=== PATIENT | male | born 1940 | race Caucasian/White ===

== ENCOUNTER 2020-03-12 15:39 | Emergency (ER) | payer MEDICARE, BC ==
--- NOTE | 2020-03-12 15:48 | ED ---
Back Pain HPI - General Stated Complaint: Back pain Time Seen by Provider: 03/12/20 15:45 - History of Present Illness Initial Comments: Patient is a 79-year-old male with past medical history of hypertension and hyperlipidemia who presents to the emergency department with lower back pain. He states he hurt it a week ago. 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 Denies history of previous back pain. States he has been ambulatory over the past week however his pain is getting progressively worse. States the last have intense spasms in the region. He has been taking Aleve without improvement. He denies any bowel or bladder incontinence or retention. Denies saddle anesthesia. Denies any fevers or chills. No history of cancer. Denies any weakness in his lower extremities. No calf pain or swelling. No history of DVT or PE. No numbness or tingling. There are no other alleviating, precipitating or modifying factors - Related Data Home Medications Medication Instructions Recorded Confirmed Cholecalciferol [Vitamin D3] 2,000 unit PO DAILY 12/29/15 03/12/20 Doxazosin [Cardura] 2 mg PO HS 12/29/15 03/12/20 Glucosamine/Chondro Berman A [Cosamin 2 tab PO DAILY 12/29/15 03/12/20 Ds Tablet] Latanoprost Ophth [Xalatan 0.005%] 1 drops LEFT EYE DAILY 12/29/15 03/12/20 Levothyroxine Sodium [Synthroid] 50 mcg PO DAILY 12/29/15 03/12/20 Quinapril HCl [Accupril] 20 mg PO DAILY 12/29/15 03/12/20 Simvastatin [Zocor] 40 mg PO HS 12/29/15 03/12/20 Vit C/E/Zn/Coppr/Lutein/Zeaxan 1 cap PO BID 12/29/15 03/12/20 [Preservision Areds 2 Softgel] Dorzolamide HCl/Pf [Dorzolamide 2% 1 drop LEFT EYE BID 03/12/20 03/12/20 Eye Drop] Glucosamine/Chondro Berman A [Cosamin 1 tab PO HS 03/12/20 03/12/20 Ds Tablet] Previous Rx's Medication Instructions Recorded Cyclobenzaprine [Flexeril] 10 mg PO TID PRN #15 tab 03/12/20 Allergies Allergy/AdvReac Type Severity Reaction Status Date / Time tree and shrub pollen Allergy Unknown Verified 03/12/20 17:12 Review of Systems ROS Statement: Those systems with pertinent positive or pertinent negative responses have been documented in the HPI. ROS Other: All systems not noted in ROS Statement are negative. Past Medical History Past Medical History: Hyperlipidemia, Hypertension, Sleep Apnea/CPAP/BIPAP, Thyroid Disorder History of Any Multi-Drug Resistant Organisms: None Reported Additional Past Surgical History / Comment(s): left eye retinal repair, loc cataracts, Past Anesthesia/Blood Transfusion Reactions: No Reported Reaction Smoking Status: Former smoker - Past Family History Sister(s) Family Medical History: Cancer General Exam General appearance: alert, in no apparent distress Head exam: Present: atraumatic, normocephalic, normal inspection Eye exam: Present: normal appearance, PERRL, EOMI. Absent: scleral icterus, conjunctival injection, periorbital swelling ENT exam: Present: normal exam, mucous membranes moist Neck exam: Present: normal inspection. Absent: tenderness, meningismus, lymphadenopathy Respiratory exam: Present: normal lung sounds bilaterally. Absent: respiratory distress, wheezes, rales, rhonchi, stridor Cardiovascular Exam: Present: regular rate, normal rhythm, normal heart sounds. Absent: systolic murmur, diastolic murmur, rubs, gallop, clicks GI/Abdominal exam: Present: soft, normal bowel sounds. Absent: distended, tenderness, guarding, rebound, rigid Extremities exam: Present: normal inspection, full ROM, normal capillary refill, other (5/5 muscle strength in the bilateral lower extremities). Absent: tenderness, pedal edema, joint swelling, calf tenderness Back exam: Present: muscle spasm, paraspinal tenderness. Absent: vertebral tenderness Neurological exam: Present: alert, oriented X3, CN II-XII intact Psychiatric exam: Present: normal affect, normal mood Skin exam: Present: warm, dry, intact, normal color. Absent: rash Course Vital Signs 03/12/20 03/12/20 03/12/20 15:44 15:46 16:00 Temperature 98.0 F Pulse Rate 63 61 Respiratory 18 12 Rate Blood Pressure 129/69 129/69 129/69 O2 Sat by Pulse 98 Oximetry 07/03/20 07/03/20 17:00 18:00 Temperature 97.8 F Pulse Rate 61 68 Respiratory 18 16 Rate Blood Pressure 128/72 129/80 O2 Sat by Pulse Oximetry Medical Decision Making - Medical Decision Making Upon arrival the patient is placed in room 24. A thorough history and physical exam was performed. IV was established by EMS. He was given 50 g of fentanyl by EMS. Patient was given 5 mg of Valium by myself as well as a shot of Toradol. Patient was sent over for a CT of his lumbar spine which demonstrates spondylitic changes. Subluxation deformity at L4-L5 and L5-S1. Severe spinal stenosis in the lower lumbar spine. Discuss results with the patient. He states he "feels ready to go home" reevaluation demonstrates no neuro deficits. Patient is ambulated her without difficulty. No saddle anesthesia or bowel or bladder retention or incontinence. Patient will be discharged home with the Flexeril started pack. Patient is to take Motrin at home. I will prescribe him an additional Flexeril to the pharmacy. I gave him felt information for Dr. Palafox. Follow up with his primary care doctor within 2-4 days. Return to the emergency room for new or worsening symptoms. Return parameters were discussed. Patient was then discharged home ambulatory in stable condition Disposition Clinical Impression: Back spasm Disposition: HOME SELF-CARE Condition: Stable Instructions (If sedation given, give patient instructions): Acute Low Back Pain (ED) Additional Instructions: Please follow up with your primary care doctor. Take the ibuprofen and muscle relaxer. Place warm compresses to the site. Return to the emergency room for any new or worsening symptoms Prescriptions: Cyclobenzaprine [Flexeril] 10 mg PO TID PRN #15 tab PRN Reason: Muscle Spasm Is patient prescribed a controlled substance at d/c from ED?: No Referrals: Ezra Maciel MD [Primary Care Provider] - 1-2 days Zack Rene DO [Doctor of Osteopathic Medicine] - 1-2 days Time of Disposition: 17:22
[2020-03-12] MEDS ORDERED: KETOROLAC 30 MG/ML 1 ML VIAL IVP STA (16:04)
[2020-03-12] MEDS ORDERED: DIAZEPAM 5 MG/ML 2 ML INJ IVP STA (16:04)
--- NOTE | 2020-03-12 17:06 | CT ---
EXAMINATION TYPE: CT lumbar spine wo con DATE OF EXAM: 03/12/2020 COMPARISON: None HISTORY: Left sided low back pain after injury. CT DLP: 1577.4 mGycm Automated exposure control for dose reduction was used. Images were obtained from the level of T12-S3 vertebra without contrast. There is a a few millimeter retrolisthesis of L4-5. There is a very mild anterior subluxation of L5 in relation S1. There is tra nsitional S1 vertebra. There is hypertrophic facet arthropathy in the lower lumbar spine. There is no compression fracture. There is vacuum disc phenomenon. There is mild narrowing of the lumbar disc sp aces. There is no lumbar paraspinal mass. There is very severe spinal stenosis at L5-S1 due to facet arthropathy and subluxation deformity. There is mild spinal stenosis at L4-5. The sacroiliac joints a re intact. I see no focal bone destruction. IMPRESSION: Spondylotic changes. Subluxation deformity at L4-5 and L5-S1. Severe spinal stenosis in the lower lum bar spine.
[2020-03-12] MEDS ORDERED: CYCLOBENZAPRINE 10MG STARTER 3 TAB BTL PO STA (17:21)
[2020-03-12 18:05] VITALS: BP 129/80; PULSE 68; RESP 16; TEMP 97.8
== END 2020-03-12 18:05 | disposition home or self-care (01) ==
LOC: EC 15:39
DX: M62.830 Muscle spasm of back (principal); M48.061 Spinal stenosis, lumbar region without neurogenic claudication; M43.5X7 Other recurrent vertebral dislocation, lumbosacral region; M47.816 Spondylosis without myelopathy or radiculopathy, lumbar region; I10 Essential (primary) hypertension; E78.5 Hyperlipidemia, unspecified; G47.30 Sleep apnea, unspecified; Z79.890 Hormone replacement therapy; Z79.899 Other long term (current) drug therapy; Z87.891 Personal history of nicotine dependence; Z91.048 Other nonmedicinal substance allergy status; Z99.89 Dependence on other enabling machines and devices
CPT/HCPCS: 72131; 99284; 96374; 96375; J3360; J1885

== ENCOUNTER 2021-03-10 11:12 | Emergency (ER) | payer MEDICARE, BC ==
[2021-03-10 11:16] VITALS: TEMP 98.4
[2021-03-10] MEDS ORDERED: methylPREDNISolone SOD SUCCI 125 MG/2 ML VIAL IM STA (11:56)
[2021-03-10] MEDS ORDERED: MORPHINE SULFATE 4 MG/ML SYRINGE IV STA (11:56)
[2021-03-10] MEDS ORDERED: MORPHINE SULFATE 4 MG/ML SYRINGE IM STA (12:09)
[2021-03-10 12:18] VITALS: RESP 18
--- NOTE | 2021-03-10 12:54 | XR ---
EXAMINATION TYPE: XR thoracic spine 3 views , XR lumbar spine 3 views DATE OF EXAM: 03/10/2021 COMPARISON: NONE HISTORY: 80-year-old male admitted and low back pain. FINDINGS: THORACIC SPINE: 12 rib-bearing thoracic vertebral bodies. All pedicles are visualized. [facility] within the lower thoracic spine. There is some prominent osseous overlap along the upper third thoracic spine. No evidence of malalignment or vertebral compression collapse. Lumbar spine: Severe hypertrophic facet arthropathy lower lumbar spine. There is a transitional lumbosacral segment denoted as a sacralized L5. Grade 1 anterolisthesis L4-L5. Grade 1 retrolisthesis L1-L2 and L3-L4. V ertebral body heights are preserved. IMPRESSION (thoracic and lumbar spine): 1. No evident vertebral compression collapse. 2. 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 3. Transitional lumbosacral segment denoted as a sacralized L5. 4. Advanced hypertrophic facet arthropathy lower lumbar spine. Grade 1 spondylolistheses at L1-L2, L3 -L4, and L4-L5.
--- NOTE | 2021-03-10 13:18 | ED ---
Back Pain HPI - General Chief Complaint: Back Pain/Injury Stated Complaint: back pain Time Seen by Provider: 03/10/21 11:23 Source: patient, RN notes reviewed Limitations: no limitations - History of Present Illness Initial Comments: Patient is a 80-year-old male that presents to the emergency department complaining of left-sided mid to low back pain. He notes that he follow up with orthopedics and they noted that it was not an orthopedic issue. 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 He notes that it is more stiff and tender on the left side than the right. He denied any radiation down the legs. He denied any issue going to the bathroom just getting up and walking to the bathroom. He notes that is mostly stiff and painful from a sitting to standing position. He was a well-appearing well-hydrated 80-year-old male in no apparent distress. He is on a computed evaluated for second opinion. He denied any chest pain shortness breath headache nausea vomiting diarrhea constipation fever fatigue chills weakness numbness tingling in his lower extremities any issues with bladder or bowel incontinence/retention. No concern for cauda equina. - Related Data Home Medications Medication Instructions Recorded Confirmed Cholecalciferol [Vitamin D3] 2,000 unit PO DAILY 12/29/15 03/10/21 Doxazosin [Cardura] 2 mg PO HS 12/29/15 03/10/21 Glucosamine/Chondro Berman A [Cosamin 2 tab PO DAILY 12/29/15 03/10/21 Ds Tablet] Latanoprost Ophth [Xalatan 0.005%] 1 drops LEFT EYE HS 12/29/15 03/10/21 Levothyroxine Sodium [Synthroid] 50 mcg PO DAILY 12/29/15 03/10/21 Quinapril HCl [Accupril] 20 mg PO DAILY 12/29/15 03/10/21 Simvastatin [Zocor] 40 mg PO HS 12/29/15 03/10/21 Vit C/E/Zn/Coppr/Lutein/Zeaxan 1 cap PO DAILY 12/29/15 03/10/21 [Preservision Areds 2 Softgel] Glucosamine/Chondro Berman A [Cosamin 1 tab PO HS 03/12/20 03/10/21 Ds Tablet] Pantoprazole Sodium [Protonix] 40 mg PO DAILY 03/10/21 03/10/21 Previous Rx's Medication Instructions Recorded Cyclobenzaprine HCl 5 mg PO TID #30 tab 03/10/21 Ibuprofen [Motrin] 800 mg PO Q6HR #30 tab 03/10/21 predniSONE 50 mg PO DAILY #5 tab 03/10/21 Allergies Allergy/AdvReac Type Severity Reaction Status Date / Time tree and shrub pollen Allergy Unknown Verified 03/10/21 13:01 Review of Systems ROS Statement: Those systems with pertinent positive or pertinent negative responses have been documented in the HPI. ROS Other: All systems not noted in ROS Statement are negative. Past Medical History Past Medical History: Hyperlipidemia, Hypertension, Sleep Apnea/CPAP/BIPAP, Thyroid Disorder History of Any Multi-Drug Resistant Organisms: None Reported Additional Past Surgical History / Comment(s): left eye retinal repair, loc cataracts, Past Anesthesia/Blood Transfusion Reactions: No Reported Reaction Past Psychological History: No Psychological Hx Reported Smoking Status: Never smoker Past Alcohol Use History: Daily Past Drug Use History: None Reported - Past Family History Sister(s) Family Medical History: Cancer General Exam Limitations: no limitations General appearance: alert, in no apparent distress Head exam: Present: atraumatic, normocephalic, normal inspection Eye exam: Present: normal appearance, PERRL, EOMI. Absent: scleral icterus, conjunctival injection, periorbital swelling Neck exam: Present: normal inspection Respiratory exam: Present: normal lung sounds bilaterally. Absent: respiratory distress, wheezes, rales, rhonchi, stridor Cardiovascular Exam: Present: regular rate, normal rhythm, normal heart sounds. Absent: systolic murmur, diastolic murmur, rubs, gallop, clicks Extremities exam: Present: normal inspection, full ROM, normal capillary refill. Absent: tenderness, pedal edema, joint swelling, calf tenderness Back exam: Present: normal inspection, full ROM, paraspinal tenderness (Left side from mid to low back) Neurological exam: Present: alert, oriented X3 Psychiatric exam: Present: normal affect, normal mood Skin exam: Present: warm, dry, intact, normal color. Absent: rash Course Vital Signs 03/10/21 03/10/21 11:14 12:17 Temperature 98.4 F Pulse Rate 72 62 Respiratory 20 18 Rate Blood Pressure 123/62 131/73 O2 Sat by Pulse 99 95 Oximetry Medical Decision Making - Medical Decision Making 80-year-old male complaining of low back pain after moving several landscaping material bags and breaks. X-ray of the thoracic lumbar and lumbar spine, 4 mg of morphine ordered. X-rays negative for any acute osseous process. Given clinical symptoms and mechanism of injury most likely a lumbar strain. Case discussed with Dr. Ambrocio, patient can discharge home. - Radiology Data Radiology results: report reviewed, image reviewed X-ray of the lumbar and thoracic spine: No evident vertebral compression claps. Disc in the mid and lower thoracic spine. Transitional lumbosacral segment denoted as a sacralized L5. Advanced hypertrophic facet arthropathy lower lumbar spine. Grade 1 spondylolisthesis at L1 to L2, L3-L4, L4-L5. Disposition Clinical Impression: Mechanical back pain, Strain of lumbar region Disposition: HOME SELF-CARE Condition: Stable Instructions (If sedation given, give patient instructions): Acute Low Back Pain (ED) Additional Instructions: Please return to the Emergency Department if symptoms worsen or any other concerns. Follow-up with primary care as needed. Take medications as prescribed. Avoid taking muscle relaxer with alcohol. Avoid driving while using the muscle relaxer. Prescriptions: Cyclobenzaprine HCl 5 mg PO TID #30 tab Ibuprofen [Motrin] 800 mg PO Q6HR #30 tab Is patient prescribed a controlled substance at d/c from ED?: No Referrals: Ezra Maciel MD [Primary Care Provider] - 1-2 days Time of Disposition: 13:18
[2021-03-10 13:45] VITALS: BP 124/71; PULSE 60
== END 2021-03-10 13:49 | disposition home or self-care (01) ==
LOC: EC 11:12
DX: S39.012A Strain of muscle, fascia and tendon of lower back, initial encounter (principal); I10 Essential (primary) hypertension; G47.30 Sleep apnea, unspecified; E78.5 Hyperlipidemia, unspecified; X50.0XXA Overexertion from strenuous movement or load, initial encounter
CPT/HCPCS: 72070; 72100; 99283; 96372 ×2; J2270; J2930

== ENCOUNTER → 2021-05-17 | Outpatient (CLI) | payer MEDICARE, BC ==
--- NOTE | 2021-05-17 12:02 | US ---
EXAMINATION TYPE: US venous doppler duplex LE LT DATE OF EXAM: 05/17/2021 11:35 AM COMPARISON: NONE CLINICAL HISTORY: I80.9 Phlebitis and thrombophlebitis Left leg. Left leg pain. No hx of DVT. Patient takes aspirin. SIDE PERFORMED: Left TECHNIQUE: The lower extremity deep venous system is examined utilizing real time linear array sonog dirk with graded compression, doppler sonography and color-flow sonography. VESSELS IMAGED: Common Femoral Vein Deep Femoral Vein Greater Saphenous Vein * Femoral Vein Popliteal Vein Small Saphenous Vein * Proximal Calf Veins (* superficial vessels) Left Leg: No evidence of DVT in veins imaged at this time. Satisfactory phasicity, compressibility, and color flow in the left lower extremity on images obtaine d. IMPRESSION: No ultrasound evidence for acute DVT in the left lower extremity.
== END | disposition home or self-care (01) ==
LOC: RADUSWWP 11:01
PROVIDERS: ATTEND Orthopaedic Surgery
DX: I80.9 Phlebitis and thrombophlebitis of unspecified site (principal); M79.605 Pain in left leg

== ENCOUNTER 2021-10-07 08:03 | Day surgery (SDC) | payer MEDICARE, BC ==
[2021-10-04 15:02] VITALS: BMI 33.5
[~2021-10-07 08:03] MED LIST: LACTATED RINGERS 1,000 ML IV SCH; LIDOCAINE 1% (10MG/ML) FOR IV START INTRADERMA PRN
[2021-10-07 08:32] VITALS: TEMP 98.4
[2021-10-07] MEDS ORDERED: LIDOCAINE 1% (10MG/ML) FOR IV START INTRADERMA ONE (08:42)
[2021-10-07] MEDS ORDERED: LIDOCAINE 1% INJ 10MG/ML (20 ML MDV) ONE (08:50)
[2021-10-07] MEDS ORDERED: PROPOFOL 10 MG/ML 20 ML VIAL IV ONE (08:50)
--- NOTE | 2021-10-07 09:03 | P.PCN ---
Date of Procedure: 10/07/21 Procedure(s) Performed: BRIEF HISTORY: Patient is a 81-year-old, pleasant, white female scheduled for an upper endoscopy as a part of evaluation of intermittent dysphagia to solids for the last 6 months duration. He does have history of GERD and has been on Protonix 40 mg daily and doing well.. PROCEDURE PERFORMED: Esophagogastroduodenoscopy with biopsy. PREOPERATIVE DIAGNOSIS: Intermittent dysphagia to solids of 6 months duration. IV sedation per anesthesia. PROCEDURE: After informed consent was obtained, the patient was brought into the endoscopy unit. IV sedation was administered by Anesthesia under continuous monitoring. Initially the Olympus GIF-140 video endoscope was inserted into the mouth. Esophagus intubated without any difficulty. The upper esophageal sphincter there was a small diverticulum identified but this could not be adequately visualized and. It was gradually advanced into the stomach and duodenum and carefully examined. The bulb and the second part of the duodenum appeared normal. The scope at this time was withdrawn to the stomach, adequately insufflated with air, and upon careful examination, mucosa of the antrum, body, cardia and the fundus appeared normal. The scope was then withdrawn into the esophagus. The GE junction was located at 39 cm from the incisors. Small hiatal hernia noted. The esophagus appeared slightly erythematous in the mid and distal esophagus with some exudates and biopsies were done to evaluate for reflux esophagitis. There was no evidence of esophageal stricture. The proximal cervical esophagus appeared normal except for small Zenker's diverticulum and the patient tolerated the procedure well. IMPRESSION: 1. Small hiatal hernia. 2. Mild mucosal erythema noted in the mid and distal esophagus with some exudates consistent with reflux esophagitis. 3. Possible small Zenker's diverticulum in the proximal cervical esophagus at the upper esophageal sphincter. RECOMMENDATIONS: The findings of this examination were discussed with the patient as well as his family. He was advised to continue with soft foods, continue Protonix 40 mg daily and follow with the biopsy results. If his symptoms progressively get worse he can have a barium swallow done to evaluate for size of Zenker's diverticulum. In the meantime continue with diet modification.
[2021-10-07 09:25] VITALS: BP 150/88; PULSE 59; RESP 18
== END 2021-10-07 09:47 | disposition home or self-care (01) ==
LOC: ORWHC2ENDO 08:03
PROVIDERS: ATTEND Internal Medicine Gastroenterology
DX: K44.9 Diaphragmatic hernia without obstruction or gangrene (principal); K21.00 Gastro-esophageal reflux disease with esophagitis, without bleeding
CPT/HCPCS: 43239; J2001; J2704; 88305; 88312; 88313

== ENCOUNTER → 2022-02-03 | Day surgery (SDC) | payer MEDICARE, BC ==
[2022-02-02 14:43] VITALS: BMI 33.5
[~2022-02-03] MED LIST changes: +LACTATED RINGERS 1,000 ML IV ONE; +LIDOCAINE 1% (10MG/ML) FOR IV START INTRADERMA ONE; -LIDOCAINE 1% (10MG/ML) FOR IV START INTRADERMA PRN; +PROPOFOL 10 MG/ML 20 ML VIAL IV ONE
[2022-02-03 10:52] VITALS: RESP 16; TEMP 97.7
--- NOTE | 2022-02-03 12:31 | P.PCN ---
Date of Procedure: 02/03/22 Procedure(s) Performed: BRIEF HISTORY: Patient is a 81-year-old pleasant white male scheduled for an elective colonoscopy as a part of evaluation of prior history of colon polyps. Last coloscopy was 6 years ago. PROCEDURE PERFORMED: Colonoscopy with biopsy and snare polypectomy. PREOPERATIVE DIAGNOSIS: History of colon polyps. IV sedation per Anesthesia. PROCEDURE: After informed consent was obtained, the patient, was brought into the endoscopy unit. IV sedation was administered by Anesthesia under continuous monitoring. Digital rectal examination was normal. Initially the Olympus CF-160 flexible video colonoscope was then inserted in the rectum, gradually advanced into the cecum without any difficulty. Careful examination was performed as the scope was gradually being withdrawn. Ileocecal valve and the appendiceal orifice were visualized and appeared normal. Prep was excellent. Mucosa of the cecum had a 3 mm polyp that was removed by cold biopsy. In the transverse colon there was a 3 mm polyp removed by cold biopsy. In the descending colon there was a 5 mm sessile polyp removed by cold biopsy. In the sigmoid colon there was a 7 mm polyp removed by snare polypectomy. Rest of the, ascending colon, transverse colon, descending colon, sigmoid colon, and rectum appeared normal. Retroflexion was performed in the rectum and no lesions were seen. Scattered diffuse diverticulosis seen. The patient tolerated the procedure well. IMPRESSION: 3 mm cecal polyp status post cold biopsy 3 mm transverse colon polyp status post cold biopsy 5 mm descending colon polyp status post cold biopsy 7 mm sigmoid colon polyp status post polypectomy Scattered diffuse diverticulosis . RECOMMENDATIONS: Findings of this examination were discussed with the patient as well as his family.. He was advised to follow with the biopsy results. If the biopsy reveals adenoma he can have a repeat colonoscopy in 3 years.
[2022-02-03 12:35] VITALS: BP 114/67
[2022-02-03 13:19] VITALS: PULSE 66
== END ==
LOC: ORWHC2ENDO 10:24
PROVIDERS: ATTEND Internal Medicine Gastroenterology
DX: D12.0 Benign neoplasm of cecum (principal); D12.3 Benign neoplasm of transverse colon; D12.4 Benign neoplasm of descending colon; D12.5 Benign neoplasm of sigmoid colon; Z86.010 Personal history of colon polyps
CPT/HCPCS: 45380; 45385; 88305; J2704

== ENCOUNTER → 2024-02-13 | Outpatient (CLI) | payer MEDICARE ==
--- NOTE | 2024-02-13 14:08 | US ---
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 Indirect Doppler criteria was utilized. FINDINGS: EXAM MEASUREMENTS: RIGHT: Peak Systolic Velocity (PSV) cm/sec ----- Right CCA: 63.3 ----- Right ICA: 81.9 ----- Right ECA: 116.2 ICA/CCA ratio: 1.3 RIGHT: End Diastole cm/sec ----- Right CCA: 15.7 ----- Right ICA: 23.7 ----- Right ECA: 10.4 LEFT: Peak Systolic Velocity (PSV) cm/sec ----- Left CCA: 68.6 ----- Left ICA: 88.5 ----- Left ECA: 96.4 ICA/CCA ratio: 1.3 LEFT: End Diastole cm/sec ----- Left CCA: 17.1 ----- Left ICA: 23.7 ----- Left ECA: 14.4 VERTEBRALS (direction of flow): Right Vertebral: Antegrade Left Vertebral: Antegrade Rhythm: Normal INSPECTOR PUBLICATIONS NOTES: Mild plaque formation noted throughout IMPRESSION: Less than 50% stenosis of the bilateral carotid bifurcations. Criteria for Assigning % of Stenosis / Diameter reduction (Estimation based on the indirect measurements of the internal carotid artery velocities (ICA PSV). 1. Normal (no stenosis)=ICA PSV < 125 cm/s: ratio < 2.0: ICA EDV<40 cm/s. 2. Less than 50% stenosis=ICA PSV < 125 cm/s: ratio < 2.0: ICA EDV<40 cm/s. 3. 50 to 69% stenosis=ICA PSV of 125 to 230 cm/s: ration 2.0 ? 4.0: ICA EDV 40-100 cm/s. 4. Greater than 70% stenosis to near occlusion= ICA PSV > 230 cm/s: ratio > 4.0: ICA EDV > 100 cm/s. 5. Near occlusion= ICA PSV velocities may be low or undetectable: variable ratio and ICA EDV. 6. Total occlusion=unable to detect flow.
--- NOTE | 2024-02-13 17:27 | CA ---
Transthoracic Echo Report Name: Ezra Gusman Age: 83 Gender: M : 1940 Exam Date: 02/13/2024 13:17 Exam Location: [facility] [facility] Ht (in): 71 Wt (lb): 220 Ordering Physician: Jaspal Cota MD Attending/Referring Phys: Jaspal Cota MD [employer] Pao Reid RDCS Procedure CPT: Indications: I34.0 NONRHEUMATIC MITRAL (VALVE) INSUFFICI Cardiac Hx: Technical Quality: Good Contrast 1: Total Dose (mL): Contrast 2: Total Dose (mL): MEASUREMENTS (Male / Female) Normal Values 2D ECHO LV Diastolic Diameter PLAX 5.0 cm 4.2 - 5.9 / 3.9 - 5.3 cm LV Systolic Diameter PLAX 3.2 cm IVS Diastolic Thickness 1.3 cm 0.6 - 1.0 / 0.6 - 0.9 cm LVPW Diastolic Thickness 1.2 cm 0.6 - 1.0 / 0.6 - 0.9 cm LV Relative Wall Thickness 0.5 RV Internal Dim ED PLAX 3.2 cm LA Systolic Diameter LX 4.0 cm 3.0 - 4.0 / 2.7 - 3.8 cm LV Diastolic Volume MOD 4C 112.0 cm??? LV Systolic Volume MOD 4C 54.2 cm??? LV Ejection Fraction MOD 4C 51.6 % LV Cardiac Index MOD 4C 1532.6 cm???/min???m??? LV Diastolic Length 4C 8.5 cm LV Systolic Length 4C 7.0 cm LV Diastolic Volume MOD 2C 103.3 cm??? LV Systolic Volume MOD 2C 47.8 cm??? LV Ejection Fraction MOD 2C 53.7 % LV Cardiac Index MOD 2C 1472.2 cm???/min???m??? LV Diastolic Length 2C 8.9 cm LV Systolic Length 2C 7.3 cm LA Volume 56.6 cm??? 18 - 58 / 22 - 52 cm??? LA Volume Index 25.0 cm???/m??? 16 - 28 cm???/m??? M-MODE Aortic Root Diameter MM 3.4 cm MV E Point Septal Separation 0.5 cm AV Cusp Separation MM 2.6 cm DOPPLER AV Peak Velocity 169.0 cm/s AV Peak Gradient 11.4 mmHg MV Area PHT 3.8 cm??? Mitral E Point Velocity 116.1 cm/s Mitral A Point Velocity 88.8 cm/s Mitral E to A Ratio 1.3 MV Deceleration Time 198.6 ms TR Peak Velocity 231.9 cm/s TR Peak Gradient 21.5 mmHg Right Ventricular Systolic Press 26.4 mmHg FINDINGS Left Ventricle Left ventricular ejection fraction is estimated at 50-55 %. Left ventricular cavity size normal. Mildly increased septal wall thickness. Right Ventricle Normal right ventricular size and function. Right ventricular systolic pressure within normal limits. Right Atrium Mild right atrial dilatation. No right atrial thrombus or mass seen. Left Atrium Mildly increased left atrial area. Mitral Valve Structurally normal mitral valve. No evidence for mitral valve prolapse. No mitral stenosis. Mild mitral regurgitation. Aortic Valve Trileaflet aortic valve. No aortic valve stenosis or regurgitation. Tricuspid Valve Structurally normal tricuspid valve. Mild tricuspid regurgitation. Pulmonic Valve Structurally normal pulmonic valve. Trace pulmonic regurgitation. Pericardium No pericardial or pleural effusion. Aorta Normal size aortic root and proximal ascending aorta. CONCLUSIONS Normal LV function Previewed by: Dr. lEmer Paige MD (Electronically Signed) Final Date: 13 February 2024 17:26
== END | disposition home or self-care (01) ==
LOC: RADUSWWP 12:35
PROVIDERS: ATTEND Internal Medicine
DX: I34.0 Nonrheumatic mitral (valve) insufficiency (principal); I65.23 Occlusion and stenosis of bilateral carotid arteries
CPT/HCPCS: 93306; 93880

== ENCOUNTER 2025-03-24 19:21 | Emergency (ER) | payer MEDICARE ==
[2025-03-24 20:04] LABS: Basophils # (A) 0.06 10*3/uL (0.00-0.10); Basophils % (A) 0.3 %; Eosinophils # (A) 0.03 10*3/uL (0.04-0.35); Eosinophils % (A) 0.2 %; HCT 38.5 % (39.6-50.0); HGB 13.1 g/dL (13.0-17.0); Lymphocytes # (A) 0.89 10*3/uL (0.90-5.00); Lymphocytes % (A) 5.2 %; MCH 32.0 pg (27.0-32.0); MCHC 34.0 g/dL (32.0-37.0); MCV 93.9 fL (80.0-97.0); Monocytes # (A) 0.42 10*3/uL (0.20-1.00); Monocytes % (A) 2.4 %; Neutrophils # (A) 15.74 10*3/uL (1.80-7.70); Neutrophils % (A) 91.3 %; Platelet Count 214 10*3/uL (140-440); RBC 4.10 10*6/uL (4.40-5.60); RDW 12.9 % (11.5-14.5); WBC 17.24 10*3/uL (4.50-10.00)
[2025-03-24 20:13] LABS: Bacteria,Urine Many /hpf; Bilirubin,Urine Negative (Negative); Blood,Urine Negative (Negative); Color,Urine Yellow; Glucose,Urine (UA) Negative (Negative); Ketones,Urine 1+ (Negative); Leukocyte Esterase,Urine Large (Negative); Mucus,Urine Occasional /hpf; Nitrite,Urine Positive (Negative); PH, Urine 5.5 (5.0-8.0); Protein,Urine 1+ (Negative); RBC,Urine 8 /hpf (0-5); Specific Gravity,Urine 1.028 (1.001-1.035); Squamous Epithelial Cell,Urine 1 /hpf (0-4); Urobilinogen,Urine <2.0 mg/dL (<2.0); WBC,Urine >182 /hpf (0-5)
[2025-03-24 20:24] LABS: ALT 19 U/L (4-49); AST 22 U/L (17-59); African American GFR (CKD) >90 (>60 ml/min/1.73 sqM); Albumin 4.5 g/dL (3.5-5.0); Alkaline Phosphatase 69 U/L (38-126); Anion Gap 11 mmol/L; Blood Urea Nitrogen 21 mg/dL (9-20); Calcium 9.5 mg/dL (8.4-10.2); Carbon Dioxide 24 mmol/L (22-30); Chloride 105 mmol/L (98-107); Glucose 134 mg/dL (74-99); Non-African American GFR(CKD) 81 (>60 ml/min/1.73 sqM); Potassium 4.2 mmol/L (3.5-5.1); Sodium 140 mmol/L (137-145); Total Protein 7.3 g/dL (6.3-8.2)
--- NOTE | 2025-03-24 21:04 | ED ---
Fever HPI - General Chief Complaint: Fever Stated Complaint: Fever Time Seen by Provider: 03/24/25 19:30 Source: patient Mode of arrival: ambulatory Limitations: no limitations - History of Present Illness Initial Comments: 84-year-old male presents to the emergency department reporting fever. Patient states that it started last night. He has also had associated tremors and difficulty urinating. He denies history of urinary tract infections but states that his has had several and therefore he is familiar with symptoms. He denies hematuria. No dysuria. Admits to increased frequency of voiding. He did take a dose of NSAIDs for his symptoms. Denies history of prostate disorders. No nausea or vomiting. Denies any abdominal pain or flank pain. No history of kidney stones. No other alleviating, precipitating or modifying f actors - Related Data Home Medications Medication Instructions Recorded Confirmed Doxazosin [Cardura] 2 mg PO DAILY 12/29/15 03/25/25 Latanoprost Ophth [Xalatan 0.005%] 1 drop LEFT EYE DAILY 12/29/15 03/25/25 Levothyroxine Sodium [Synthroid] 50 mcg PO DAILY 12/29/15 03/25/25 Simvastatin [Zocor] 40 mg PO HS 12/29/15 03/25/25 Losartan [Cozaar] 50 mg PO DAILY 03/25/25 03/25/25 Montelukast [Singulair] 10 mg PO DAILY 03/25/25 03/25/25 Timolol 0.5% Ophth Soln [Timoptic 1 drop LEFT EYE DAILY 03/25/25 03/25/25 0.5% Ophth Soln] Allergies Allergy/AdvReac Type Severity Reaction Status Date / Time tree and shrub pollen Allergy Unknown Verified 03/25/25 10:24 Review of Systems ROS Statement: Those systems with pertinent positive or pertinent negative responses have been documented in the HPI. ROS Other: All systems not noted in ROS Statement are negative. Past Medical History Past Medical History: Hyperlipidemia, Hypertension, Osteoarthritis (OA), Sleep Apnea/CPAP/BIPAP, Thyroid Disorder Additional Past Medical History / Comment(s): SOME TROUBLE SWALLOWING, Ventr icular arrhythmia. History of Any Multi-Drug Resistant Organisms: None Reported Additional Past Surgical History / Comment(s): left eye retinal repair, loc cataracts removed, colonoscopy Past Anesthesia/Blood Transfusion Reactions: No Reported Reaction Past Psychological History: No Psychological Hx Reported Smoking Status: Never smoker Past Alcohol Use History: Rare Past Drug Use History: None Reported - Past Family History Sister(s) Family Medical History: Cancer General Exam Limitations: no limitations General appearance: alert, in no apparent distress Head exam: Present: atraumatic, normocephalic, normal inspection Eye exam: Present: normal appearance, PERRL, EOMI. Absent: scleral icterus, conjunctival injection, periorbital swelling ENT exam: Present: normal exam, mucous membranes moist Neck exam: Present: normal inspection. Absent: tenderness, meningismus, lymphadenopathy Respiratory exam: Present: normal lung sounds bilaterally. Absent: respiratory distress, wheezes, rales, rhonchi, stridor Cardiovascular Exam: Present: regular rate, normal rhythm, normal heart sounds. Absent: systolic murmur, diastolic murmur, rubs, gallop, clicks GI/Abdominal exam: Present: soft, normal bowel sounds. Absent: distended, tenderness, guarding, rebound, rigid Extremities exam: Present: normal inspection, full ROM, normal capillary refill. Absent: tenderness, pedal edema, joint swelling, calf tenderness Back exam: Present: normal inspection Neurological exam: Present: alert, oriented X3, CN II-XII intact Psychiatric exam: Present: normal affect, normal mood Skin exam: Present: warm, dry, intact, normal color. Absent: rash Course Vital Signs 03/24/25 03/24/25 19:25 21:22 Temperature 99.3 F 98.5 F Pulse Rate 90 76 Respiratory 18 19 Rate Blood Pressure 140/60 114/62 O2 Sat by Pulse 93 L 95 Oximetry Medical Decision Making - Medical Decision Making Was pt. sent in by a medical professional or institution (, PA, [employer], urgent care, hospital, or snf...) When possible be specific @ -No Did you speak to anyone other than the patient for history (EMS, parent, family, police, friend...)? What history was obtained from this source @ -I spoke with EMS for history Did you review nursing and triage notes (agree or disagree)? Why? @ -I reviewed and agree with nursing and triage notes Were old charts reviewed (outside hosp., previous admission, EMS record, old EKG, old radiological studies, urgent care reports/EKG's, snf records)? Report findings @ -No old charts were reviewed Differential Diagnosis (chest pain, altered mental status, abdominal pain women, abdominal pain men, vaginal bleeding, weakness, fever, dyspnea, syncope, he adache, dizziness, GI bleed, back pain, seizure, CVA, palpatations, mental health, musculoskeletal)? @ -Differential Fever: Pneumonia, viral URI, endocarditis, myocarditis, pericarditis, otitis, sin usitis, peritonsillar Abscess, retropharyngeal Abscess, epiglottitis, peritonitis, appendicitis, Kiley cystitis, diverticulitis, hepatitis, colitis, UTI, PID, TOA, pyelonephritis, prostatitis, epididymitis, meningitis, encephalitis, pulmonary embolism, CVA, thyroid storm, pancreatitis, adrenal crisis, cavernous sinus thrombosis, this is not meant to be an all-inclusive list. EKG interpreted by me (3pts min.). @ -Not done X-rays interpreted by me (1pt min.). @ -None done CT interpreted by me (1pt min.). @ -None done U/S interpreted by me (1pt. min.). @ -None done What testing was considered but not performed or refused? (CT, X-rays, U/S, labs)? Why? @ -None What meds were considered but not given or refused? Why? @ -None Did you discuss the management of the patient with other professionals (professionals i.e. , PA, [employer], lab, RT, psych nurse, social worker school, equine dentist, teacher, debt recovery officer, sample case porter)? Give summary @ -No Was smoking cessation discussed for >3mins.? @ -No Was critical care preformed (if so, how long)? @ -No Were there social determinants of health that impacted care today? How? (Homelessness, low income, unemployed, alcoholism, drug addiction, transpor tation, low edu. Level, literacy, decrease access to med. care, penitentiary, rehab)? @ -No Was there de-escalation of care discussed even if they declined (Discuss DNR or withdrawal of care, Hospice)? DNR status @ -No What co-morbidities impacted this encounter? (DM, HTN, Smoking, COPD, CAD, Cancer, CVA, ARF, Chemo, Hep., AIDS, mental health diagnosis, sleep apnea, morbid obesity)? @ -None Was patient admitted / discharged? Hospital course, mention meds given and route, prescriptions, significant lab abnormalities, going to OR and other pertinent info. @ -Upon arrival patient seen and evaluated in bed 31. Thorough history and physical exam was performed. Laboratory studies are conducted. Urinalysis does demonstrate infection. Patient does have elevated white blood cell count. Results are discussed with the patient. I did initiate a dose of Rocephin. Patient will be discharged home on Keflex. Instructed to start taking the antibiotics tomorrow. He must follow-up with his primary care doctor to ensure that the infection has cleared after the antibiotics are finished. Patient also needs to have his white blood cell count rechecked to ensure that this improves. If he has any new or worsening symptoms to include uncontrolled fevers, inability to urinate then he must return to the emergency department. Patient understands the low threshold for return. Patient discharged in stable condition Undiagnosed new problem with uncertain prognosis? @ -No Drug Therapy requiring intensive monitoring for toxicity (Heparin, Nitro, Insulin, Cardizem)? @ -No Were any procedures done? @ -No Diagnosis/symptom? @ -Acute dysuria, acute UTI, leukocytosis Acute, or Chronic, or Acute on Chronic? @ -Acute Uncomplicated (without systemic symptoms) or Complicated (systemic symptoms)? @ -Complicated Side effects of treatment? @ -No Exacerbation, Progression, or Severe Exacerbation? @ -No Poses a threat to life or bodily function? How? (Chest pain, USA, MD, pneumonia, PE, COPD, DKA, ARF, appy, cholecystitis, CVA, Diverticulitis, Homicidal, Suicidal, threat to staff... and all critical care pts) @ -No - Lab Data Result diagrams: 03/24/25 19:57 03/24/25 19:57 Lab Results 03/24/25 03/24/25 03/24/25 Range/Units 19:45 19:57 19:57 WBC 17.24 H (4.50-10.00) 10*3/uL RBC 4.10 L (4.40-5.60) 10*6/uL Hgb 13.1 (13.0-17.0) g/dL Hct 38.5 L (39.6-50.0) % MCV 93.9 (80.0-97.0) fL MCH 32.0 (27.0-32.0) pg MCHC 34.0 (32.0-37.0) g/dL Plt Count 214 (140-440) 10*3/uL MPV 11.7 (9.5-12.2) fL Immature Gran % (Auto) 0.6 % Neutrophils % 91.3 % Lymphocytes % 5.2 % Monocytes % 2.4 % Eosinophils % 0.2 % Basophils % 0.3 % Immature Gran # 0.10 H (0.00-0.04) 10*3/uL Neutrophils # 15.74 H (1.80-7.70) 10*3/uL Lymphocytes # 0.89 L (0.90-5.00) 10*3/uL Monocytes # 0.42 (0.20-1.00) 10*3/uL Eosinophils # 0.03 L (0.04-0.35) 10*3/uL Basophils # 0.06 (0.00-0.10) 10*3/uL Sodium 140 (137-145) mmol/L Potassium 4.2 (3.5-5.1) mmol/L Chloride 105 (98-107) mmol/L Carbon Dioxide 24 (22-30) mmol/L Anion Gap 11 mmol/L BUN 21 H (9-20) mg/dL Creatinine 0.87 (0.66-1.25) mg/dL Est GFR (CKD-EPI)AfAm >90 (>60 ml/min/1.73 sqM) Est GFR (CKD-EPI)NonAf 81 (>60 ml/min/1.73 sqM) Glucose 134 H (74-99) mg/dL Plasma Lactic Acid Noel (0.7-2.0) mmol/L Calcium 9.5 (8.4-10.2) mg/dL Total Bilirubin 0.8 (0.2-1.3) mg/dL AST 22 (17-59) U/L ALT 19 (4-49) U/L Alkaline Phosphatase 69 (38-126) U/L Total Protein 7.3 (6.3-8.2) g/dL Albumin 4.5 (3.5-5.0) g/dL Urine Color Yellow Urine Appearance Cloudy (Clear) Urine pH 5.5 (5.0-8.0) Ur Specific Hallam 1.028 (1.001-1.035) Urine Protein 1+ H (Negative) Urine Glucose (UA) Negative (Negative) Urine Ketones 1+ H (Negative) Urine Blood Negative (Negative) Urine Nitrite Positive (Negative) Urine Bilirubin Negative (Negative) Urine Urobilinogen <2.0 (<2.0) mg/dL Ur Leukocyte Esterase Large H (Negative) Urine RBC 8 H (0-5) /hpf Urine WBC >182 H (0-5) /hpf Urine WBC Clumps Few H (None) /hpf Ur Squamous Epith Cells 1 (0-4) /hpf Urine Bacteria Many H (None) /hpf Urine Mucus Occasional H (None) /hpf 03/24/25 Range/Units 19:57 WBC (4.50-10.00) 10*3/uL RBC (4.40-5.60) 10*6/uL Hgb (13.0-17.0) g/dL Hct (39.6-50.0) % MCV (80.0-97.0) fL MCH (27.0-32.0) pg MCHC (32.0-37.0) g/dL Plt Count (140-440) 10*3/uL MPV (9.5-12.2) fL Immature Gran % (Auto) % Neutrophils % % Lymphocytes % % Monocytes % % Eosinophils % % Basophils % % Immature Gran # (0.00-0.04) 10*3/uL Neutrophils # (1.80-7.70) 10*3/uL Lymphocytes # (0.90-5.00) 10*3/uL Monocytes # (0.20-1.00) 10*3/uL Eosinophils # (0.04-0.35) 10*3/uL Basophils # (0.00-0.10) 10*3/uL Sodium (137-145) mmol/L Potassium (3.5-5.1) mmol/L Chloride (98-107) mmol/L Carbon Dioxide (22-30) mmol/L Anion Gap mmol/L BUN (9-20) mg/dL Creatinine (0.66-1.25) mg/dL Est GFR (CKD-EPI)AfAm (>60 ml/min/1.73 sqM) Est GFR (CKD-EPI)NonAf (>60 ml/min/1.73 sqM) Glucose (74-99) mg/dL Plasma Lactic Acid Noel 1.2 (0.7-2.0) mmol/L Calcium (8.4-10.2) mg/dL Total Bilirubin (0.2-1.3) mg/dL AST (17-59) U/L ALT (4-49) U/L Alkaline Phosphatase (38-126) U/L Total Protein (6.3-8.2) g/dL Albumin (3.5-5.0) g/dL Urine Color Urine Appearance (Clear) Urine pH (5.0-8.0) Ur Specific Hallam (1.001-1.035) Urine Protein (Negative) Urine Glucose (UA) (Negative) Urine Ketones (Negative) Urine Blood (Negative) Urine Nitrite (Negative) Urine Bilirubin (Negative) Urine Urobilinogen (<2.0) mg/dL Ur Leukocyte Esterase (Negative) Urine RBC (0-5) /hpf Urine WBC (0-5) /hpf Urine WBC Clumps (None) /hpf Ur Squamous Epith Cells (0-4) /hpf Urine Bacteria (None) /hpf Urine Mucus (None) /hpf Disposition Clinical Impression: Dysuria, Acute UTI, Leukocytosis Disposition: HOME SELF-CARE Condition: Stable Instructions (If sedation given, give patient instructions): Urinary Tract Infection in Men (ED) Additional Instructions: Please take the antibiotic as instructed starting tomorrow. Follow-up with your primary care doctor. They need to recheck your white blood cell count and urine once your antibiotics are finished. If you have any new or worsening symptoms to include uncontrolled fevers, inability to urinate or hold down your medications need to return to the emergency department Is patient prescribed a controlled substance at d/c from ED?: No Referrals: Jaspal Cota MD [Primary Care Provider] - 1-2 days Time of Disposition: 21:15
[2025-03-24 21:22] VITALS: BP 114/62; PULSE 76; RESP 19; TEMP 98.5
[2025-03-24] MEDS: cefTRIAXone IN SWFI 1,000 MG/10 ML SYRINGE IVP STA (21:35)
== END 2025-03-24 21:40 | disposition home or self-care (01) ==
LOC: EC 19:21
DX: N39.0 Urinary tract infection, site not specified (principal); D72.829 Elevated white blood cell count, unspecified; Z88.8 Allergy status to other drugs, medicaments and biological substances
CPT/HCPCS: 36415; 80053; 83605; 85025; 81001; 99284; 96374; J0696

== ENCOUNTER 2025-03-25 05:27 | Inpatient (IN) | payer MEDICARE ==
--- NOTE | 2025-03-25 05:43 | ED ---
Fever HPI - General Chief Complaint: Urogenital Stated Complaint: UTI Time Seen by Provider: 03/25/25 05:41 Source: patient, RN notes reviewed, old records reviewed Mode of arrival: EMS Limitations: no limitations - History of Present Illness Initial Comments: This is a 84-year-old male to the ER for evaluation of fever in our ER yesterday diagnosed with UTI fever dysuria and feeling unwell. MD Complaint: fever -: days(s) Temperature Source: subjective Context: recent antibiotic use Associated Symptoms: chills, myalgias Treatments Prior to Arrival: none - Related Data Home Medications Medication Instructions Recorded Confirmed Doxazosin [Cardura] 2 mg PO DAILY 12/29/15 03/25/25 Latanoprost Ophth [Xalatan 0.005%] 1 drop LEFT EYE DAILY 12/29/15 03/25/25 Levothyroxine Sodium [Synthroid] 50 mcg PO DAILY 12/29/15 03/25/25 Simvastatin [Zocor] 40 mg PO HS 12/29/15 03/25/25 Losartan [Cozaar] 50 mg PO DAILY 03/25/25 03/25/25 Montelukast [Singulair] 10 mg PO DAILY 03/25/25 03/25/25 Timolol 0.5% Ophth Soln [Timoptic 1 drop LEFT EYE DAILY 03/25/25 03/25/25 0.5% Ophth Soln] Previous Rx's Medication Instructions Recorded cefuroxime axetiL [Ceftin] 500 mg PO BID 7 Days #14 tab 03/28/25 Allergies Allergy/AdvReac Type Severity Reaction Status Date / Time tree and shrub pollen Allergy Unknown Verified 03/25/25 10:24 Review of Systems ROS Statement: Those systems with pertinent positive or pertinent negative responses have been documented in the HPI. ROS Other: All systems not noted in ROS Statement are negative. Past Medical History Past Medical History: Hyperlipidemia, Hypertension, Osteoarthritis (OA), Sleep Apnea/CPAP/BIPAP, Thyroid Disorder Additional Past Medical History / Comment(s): SOME TROUBLE SWALLOWING, Ventricular arrhythmia. History of Any Multi-Drug Resistant Organisms: None Reported Additional Past Surgical History / Comment(s): left eye retinal repair, loc cataracts removed, colonoscopy Past Anesthesia/Blood Transfusion Reactions: No Reported Reaction Past Psychological History: No Psychological Hx Reported Smoking Status: Never smoker Past Alcohol Use History: Rare Past Drug Use History: None Reported - Past Family History Sister(s) Family Medical History: Cancer General Exam Limitations: no limitations General appearance: alert, in no apparent distress Head exam: Present: atraumatic, normocephalic, normal inspection Eye exam: Present: normal appearance, PERRL, EOMI. Absent: scleral icterus, conjunctival injection, periorbital swelling ENT exam: Present: normal exam, mucous membranes moist Neck exam: Present: normal inspection. Absent: tenderness, meningismus, lymphadenopathy Respiratory exam: Present: normal lung sounds bilaterally. Absent: respiratory distress, wheezes, rales, rhonchi, stridor Cardiovascular Exam: Present: regular rate, normal rhythm, normal heart sounds. Absent: systolic murmur, diastolic murmur, rubs, gallop, clicks GI/Abdominal exam: Present: soft, normal bowel sounds. Absent: distended, tenderness, guarding, rebound, rigid Extremities exam: Present: normal inspection, full ROM, normal capillary refill. Absent: tenderness, pedal edema, joint swelling, calf tenderness Back exam: Present: normal inspection Neurological exam: Present: alert, oriented X3, CN II-XII intact Psychiatric exam: Present: normal affect, normal mood Skin exam: Present: warm, dry, intact, normal color. Absent: rash Course Vital Signs 03/25/25 03/25/25 03/25/25 05:36 06:20 07:19 Temperature 100.5 F H 98.4 F Pulse Rate 78 62 Respiratory 20 18 Rate Blood Pressure 126/56 115/86 O2 Sat by Pulse 95 95 Oximetry 03/25/25 03/25/25 03/25/25 08:11 11:13 12:25 Temperature Pulse Rate 65 65 Respiratory 16 16 Rate Blood Pressure 93/34 105/70 O2 Sat by Pulse 95 95 95 Oximetry 03/25/25 13:53 Temperature 97.9 F Pulse Rate 70 Respiratory 16 Rate Blood Pressure 114/52 O2 Sat by Pulse 96 Oximetry - Reevaluation(s) Reevaluation #1: 03/25/25 06:17 Medical records reviewed Reevaluation #2: 03/25/25 06:17 Patient symptoms improved here in the Reevaluation #3: 03/25/25 06:17 Patient informed of results and questions answered Reevaluation #4: Was pt. sent in by a medical professional or institution ([facility], [employer], urgent care, hospital, or snf...) When possible be specific @ -no Did you speak to anyone other than the patient for history (EMS, parent, family, police, friend...)? What history was obtained from this source @ -no Did you review nursing and triage notes (agree or disagree)? Why? @ -agree Are old charts reviewed (outside hosp., previous admission, EMS record, old EKG, old radiological studies, urgent care reports/EKG's, snf records)? Report findings @ -yes Differential Diagnosis (chest pain, altered mental status, abdominal pain women, abdominal pain men, vaginal bleeding, weakness, fever, dyspnea, syncope, headache, dizziness, GI bleed, back pain, seizure, CVA, palpatations, mental health, musculoskeletal)? @ -prior EKG interpreted by me (3pts min.). @ -yes X-rays interpreted by me (1pt min.). @ -yes negative for acute disease CT interpreted by me (1pt min.). @ -no U/S interpreted by me (1pt. min.). @ -no What testing was considered but not performed or refused? (CT, X-rays, U/S, labs)? Why? @ -none What meds were considered but not given or refused? Why? @ -none Did you discuss the management of the patient with other professionals (professionals i.e. [facility]ATT[facility] Miranda, [employer], lab, RT, psych nurse, social welfare administrator, head end desizing machine operator, teacher, community resource officer, shoe parts caser)? Give summary @ -no Was smoking cessation discussed for >3mins.? @ -no Was critical care preformed (if so, how long)? @ -no Were there social determinants of health that impacted care today? How? (Homelessness, low income, unemployed, alcoholism, drug addiction, transportation, low edu. Level, literacy, decrease access to med. care, usp, rehab)? @ -none Was there de-escalation of care discussed even if they declined (Discuss DNR or withdrawal of care, Hospice)? DNR status @ -no What co-morbidities impacted this encounter? (DM, HTN, Smoking, COPD, CAD, Cancer, CVA, ARF, Chemo, Hep., AIDS, mental health diagnosis, sleep apnea, morbid obesity)? @ -none Was patient admitted / discharged? Hospital course, mention meds given and route, prescriptions, significant lab abnormalities, going to OR and other pertinent info. @ - 84 male to be admitted for fever UTI sepsis failed outpatient treatment Admitted Undiagnosed new problem with uncertain prognosis? @ -no Drug Therapy requiring intensive monitoring for toxicity (Heparin, Nitro, Insulin, Cardizem)? @ -no Were any procedures done? @ -no Diagnosis/symptom? @ -UTI fever sepsis Acute, or Chronic, or Acute on Chronic? @ -Acute Uncomplicated (without systemic symptoms) or Complicated (systemic symptoms)? @ -Complicated Side effects of treatment? @ -no Exacerbation, Progression, or Severe Exacerbation? @ -exacerbation Poses a threat to life or bodily function? How? (Chest pain, USA, NC, pneumonia, PE, COPD, DKA, ARF, appy, cholecystitis, CVA, Diverticulitis, Homicidal, Suicidal, threat to staff... and all critical care pts) @ -yes extremes of age Reevaluation #5: Differential Fever: Pneumonia, viral URI, endocarditis, myocarditis, pericarditis, otitis, sinusitis, peritonsillar Abscess, retropharyngeal Abscess, epiglottitis, peritonitis, appendicitis, Kiley cystitis, diverticulitis, hepatitis, colitis, UTI, PID, TOA, pyelonephritis, prostatitis, epididymitis, meningitis, encephalitis, pulmonary embolism, CVA, thyroid storm, pancreatitis, adrenal crisis, cavernous sinus thrombosis, this is not meant to be an all-inclusive list. - Consultations Consultation #1: Spoke with the doctor [facility] to admit this patient Medical Decision Making - Medical Decision Making 84 male to be admitted for fever UTI sepsis failed outpatient treatment - Lab Data Result diagrams: 03/27/25 05:47 03/27/25 05:47 Lab Results 03/25/25 03/25/25 03/25/25 Range/Units 05:41 05:49 05:49 WBC 14.01 H (4.50-10.00) 10*3/uL RBC 3.86 L (4.40-5.60) 10*6/uL Hgb 12.1 L (13.0-17.0) g/dL Hct 36.4 L (39.6-50.0) % MCV 94.3 (80.0-97.0) fL MCH 31.3 (27.0-32.0) pg MCHC 33.2 (32.0-37.0) g/dL Plt Count 198 (140-440) 10*3/uL MPV 11.8 (9.5-12.2) fL Immature Gran % (Auto) 0.7 % Neutrophils % 90.2 % Lymphocytes % 4.9 % Monocytes % 3.6 % Eosinophils % 0.4 % Basophils % 0.2 % Immature Gran # 0.10 H (0.00-0.04) 10*3/uL Neutrophils # 12.63 H (1.80-7.70) 10*3/uL Lymphocytes # 0.69 L (0.90-5.00) 10*3/uL Monocytes # 0.50 (0.20-1.00) 10*3/uL Eosinophils # 0.06 (0.04-0.35) 10*3/uL Basophils # 0.03 (0.00-0.10) 10*3/uL Manual Slide Review Performed PT 10.9 (10.0-12.5) sec INR 1.0 (<1.2) APTT 24.5 (22.0-30.0) sec Sodium (137-145) mmol/L Potassium (3.5-5.1) mmol/L Chloride (98-107) mmol/L Carbon Dioxide (22-30) mmol/L Anion Gap mmol/L BUN (9-20) mg/dL Creatinine (0.66-1.25) mg/dL Est GFR (CKD-EPI)AfAm (>60 ml/min/1.73 sqM) Est GFR (CKD-EPI)NonAf (>60 ml/min/1.73 sqM) Glucose (74-99) mg/dL Plasma Lactic Acid Noel (0.7-2.0) mmol/L Calcium (8.4-10.2) mg/dL Phosphorus (2.5-4.5) mg/dL Magnesium (1.6-2.3) mg/dL Total Bilirubin (0.2-1.3) mg/dL AST (17-59) U/L ALT (4-49) U/L Alkaline Phosphatase (38-126) U/L Troponin I (0.000-0.034) ng/mL NT-Pro-B Natriuret Pep pg/mL Total Protein (6.3-8.2) g/dL Albumin (3.5-5.0) g/dL Urine Color Yellow Urine Appearance Cloudy (Clear) Urine pH 5.5 (5.0-8.0) Ur Specific [place] 1.030 (1.001-1.035) Urine Protein 1+ H (Negative) Urine Glucose (UA) Negative (Negative) Urine Ketones 1+ H (Negative) Urine Blood Negative (Negative) Urine Nitrite Negative (Negative) Urine Bilirubin Negative (Negative) Urine Urobilinogen 2.0 (<2.0) mg/dL Ur Leukocyte Esterase Large H (Negative) Urine RBC 23 H (0-5) /hpf Urine WBC 166 H (0-5) /hpf Urine WBC Clumps Occasional H (None) /hpf Urine Bacteria Rare H (None) /hpf Hyaline Casts 13 H (0-2) /lpf Urine Mucus Occasional H (None) /hpf 03/25/25 03/25/25 03/25/25 Range/Units 05:49 05:49 05:49 WBC (4.50-10.00) 10*3/uL RBC (4.40-5.60) 10*6/uL Hgb (13.0-17.0) g/dL Hct (39.6-50.0) % MCV (80.0-97.0) fL MCH (27.0-32.0) pg MCHC (32.0-37.0) g/dL Plt Count (140-440) 10*3/uL MPV (9.5-12.2) fL Immature Gran % (Auto) % Neutrophils % % Lymphocytes % % Monocytes % % Eosinophils % % Basophils % % Immature Gran # (0.00-0.04) 10*3/uL Neutrophils # (1.80-7.70) 10*3/uL Lymphocytes # (0.90-5.00) 10*3/uL Monocytes # (0.20-1.00) 10*3/uL Eosinophils # (0.04-0.35) 10*3/uL Basophils # (0.00-0.10) 10*3/uL Manual Slide Review PT (10.0-12.5) sec INR (<1.2) APTT (22.0-30.0) sec Sodium 137 (137-145) mmol/L Potassium 4.5 (3.5-5.1) mmol/L Chloride 103 (98-107) mmol/L Carbon Dioxide 22 (22-30) mmol/L Anion Gap 12 mmol/L BUN 25 H (9-20) mg/dL Creatinine 0.88 (0.66-1.25) mg/dL Est GFR (CKD-EPI)AfAm >90 (>60 ml/min/1.73 sqM) Est GFR (CKD-EPI)NonAf 80 (>60 ml/min/1.73 sqM) Glucose 109 H (74-99) mg/dL Plasma Lactic Acid Noel 1.5 (0.7-2.0) mmol/L Calcium 9.0 (8.4-10.2) mg/dL Phosphorus 2.9 (2.5-4.5) mg/dL Magnesium 1.6 (1.6-2.3) mg/dL Total Bilirubin 1.0 (0.2-1.3) mg/dL AST 40 (17-59) U/L ALT 26 (4-49) U/L Alkaline Phosphatase 59 (38-126) U/L Troponin I 0.012 (0.000-0.034) ng/mL NT-Pro-B Natriuret Pep 1160 pg/mL Total Protein 6.5 (6.3-8.2) g/dL Albumin 3.7 (3.5-5.0) g/dL Urine Color Urine Appearance (Clear) Urine pH (5.0-8.0) Ur Specific [place] (1.001-1.035) Urine Protein (Negative) Urine Glucose (UA) (Negative) Urine Ketones (Negative) Urine Blood (Negative) Urine Nitrite (Negative) Urine Bilirubin (Negative) Urine Urobilinogen (<2.0) mg/dL Ur Leukocyte Esterase (Negative) Urine RBC (0-5) /hpf Urine WBC (0-5) /hpf Urine WBC Clumps (None) /hpf Urine Bacteria (None) /hpf Hyaline Casts (0-2) /lpf Urine Mucus (None) /hpf - EKG Data -: EKG Interpreted by Me (EKG is sinus 67 WV 243 QRS 87 QTc 382) - Radiology Data Radiology results: report reviewed (Chest x-ray is negative for acute disease), image reviewed Disposition Clinical Impression: Acute UTI, Leukocytosis, Fever Disposition: ADMITTED IP TO THIS HOSP Condition: Stable Is patient prescribed a controlled substance at d/c from ED?: No Time of Disposition: 07:00
[2025-03-25] MEDS: SODIUM CHLORIDE 0.9% 1,000 ML IV SCH ×2 (05:54→07:16)
[2025-03-25] MEDS: IBUPROFEN 800 MG TAB PO STA (05:57)
[2025-03-25] MEDS: ACETAMINOPHEN TAB 500 MG TAB PO STA (05:57)
[2025-03-25] MEDS ORDERED: NALOXONE 0.4 MG/ML 1 ML VIAL IV PRN (06:19)
[2025-03-25] MEDS ORDERED: MORPHINE SULFATE 4 MG/ML SYRINGE IV PRN (06:19)
[2025-03-25 06:49] LABS: Basophils # (A) 0.03 10*3/uL (0.00-0.10); Basophils % (A) 0.2 %; Eosinophils # (A) 0.06 10*3/uL (0.04-0.35); Eosinophils % (A) 0.4 %; HCT 36.4 % (39.6-50.0); HGB 12.1 g/dL (13.0-17.0); Lymphocytes # (A) 0.69 10*3/uL (0.90-5.00); Lymphocytes % (A) 4.9 %; MCH 31.3 pg (27.0-32.0); MCHC 33.2 g/dL (32.0-37.0); MCV 94.3 fL (80.0-97.0); Monocytes # (A) 0.50 10*3/uL (0.20-1.00); Monocytes % (A) 3.6 %; Neutrophils # (A) 12.63 10*3/uL (1.80-7.70); Neutrophils % (A) 90.2 %; Platelet Count 198 10*3/uL (140-440); RBC 3.86 10*6/uL (4.40-5.60); RDW 13.0 % (11.5-14.5); WBC 14.01 10*3/uL (4.50-10.00)
[2025-03-25 06:55] LABS: INR 1.0 (<1.2); Partial Thromboplastin Time 24.5 sec (22.0-30.0); Prothrombin Time 10.9 sec (10.0-12.5)
[2025-03-25 07:01] LABS: ALT 26 U/L (4-49); African American GFR (CKD) >90 (>60 ml/min/1.73 sqM); Blood Urea Nitrogen 25 mg/dL (9-20); Calcium 9.0 mg/dL (8.4-10.2); Carbon Dioxide 22 mmol/L (22-30); Glucose 109 mg/dL (74-99); Non-African American GFR(CKD) 80 (>60 ml/min/1.73 sqM)
[2025-03-25 07:01] LABS: Bacteria,Urine Rare /hpf; Bilirubin,Urine Negative (Negative); Blood,Urine Negative (Negative); Color,Urine Yellow; Glucose,Urine (UA) Negative (Negative); Hyaline Casts,Urine 13 /lpf (0-2); Ketones,Urine 1+ (Negative); Leukocyte Esterase,Urine Large (Negative); Mucus,Urine Occasional /hpf; Nitrite,Urine Negative (Negative); PH, Urine 5.5 (5.0-8.0); Protein,Urine 1+ (Negative); RBC,Urine 23 /hpf (0-5); Specific Gravity,Urine 1.030 (1.001-1.035); Urobilinogen,Urine 2.0 mg/dL (<2.0); WBC,Urine 166 /hpf (0-5)
[2025-03-25 07:03] LABS: Anion Gap 12 mmol/L; Chloride 103 mmol/L (98-107); Sodium 137 mmol/L (137-145)
--- NOTE | 2025-03-25 07:08 | XR ---
EXAM: XR Chest, 2 Views CLINICAL HISTORY: ITS.REASON XR Reason: Weakness TECHNIQUE: Frontal and lateral views of the chest. COMPARISON: No relevant prior studies available. FINDINGS: Lungs: Mild perihilar interstitial prominence, left greater than right. This could be infectious or inflammatory. No significant effusion. No consolidation. Pleural space: Unremarkable. No pneumothorax. Heart: Unremarkable. No cardiomegaly. Mediastinum: Unremarkable. Normal mediastinal contour. Bones/joints: No acute fracture. Degenerative changes in the thoracic spine. IMPRESSION: Mild perihilar interstitial prominence, left greater than right. This could be infectious or inflammatory. No significant effusion.
[2025-03-25 07:09] LABS: NT-Pro-B-Type Natriuretic Pept 1160 pg/mL
[2025-03-25 07:16] LABS: Albumin 3.7 g/dL (3.5-5.0); Magnesium 1.6 mg/dL (1.6-2.3); Potassium 4.5 mmol/L (3.5-5.1); Total Protein 6.5 g/dL (6.3-8.2)
[2025-03-25 07:17] LABS: AST 40 U/L (17-59); Alkaline Phosphatase 59 U/L (38-126)
[2025-03-25 08:00] LABS: RSV Not Detected (Not Detectd)
[2025-03-25] MEDS: LOSARTAN 50 MG TAB PO SCH (12:27)
[2025-03-25] MEDS: ONDANSETRON 4 MG/2 ML VIAL IVP PRN (16:08)
[2025-03-25] MEDS: ACETAMINOPHEN TAB 325 MG TAB PO PRN (17:53)
[2025-03-25] MEDS: MONTELUKAST 10 MG TAB PO SCH (23:16)
[2025-03-25] MEDS: ATORVASTATIN 20 MG TAB PO SCH (23:16)
[2025-03-26] MEDS: LEVOTHYROXINE 50 MCG TAB PO SCH (06:49)
--- NOTE | 2025-03-26 07:02 | P.CONS ---
History of Present Illness - Reason for Consult Consult date: 03/25/25 UTI Requesting physician: Kellen France - Chief Complaint Fever with chills x few days - History of Present Illness Patient is a 84-year-old male with a past medical history significant for Hyperlipidemia, Hypertension, Osteoarthritis (OA), Sleep Apnea/CPAP/BIPAP, Thyroid Disorder presenting to the hospital for evaluation of fever with rigors and chills not feeling well and did have symptoms of burning urine and suprapubic discomfort symptom has been going on for the last 2 to 3 days patient did have some nausea but no vomiting denies having any chest pain shortness of breath or cough no headache or URI symptoms no diarrhea or constipation on presentation to the hospital patient did have temperature of 100.5 F patient was not tachycardic hypotensive or hypoxic he did have elevated white count of 14.01 with a left shift creatinine 0.88 electrolytes are normal liver enzymes are normal urine has been positive influenza RSV COVID testing was negative patient did have a chest x-ray mild perihilar interstitial prominence no significant effusion patient was started on Rocephin 2 g daily infectious disease was consulted for further management of antibiotic therapy Review of Systems Positive point and negatives has been mentioned in the HPI, complete review of systems was performed and all other systems are negative Past Medical History Past Medical History: Hyperlipidemia, Hypertension, Osteoarthritis (OA), Sleep Apnea/CPAP/BIPAP, Thyroid Disorder Additional Past Medical History / Comment(s): SOME TROUBLE SWALLOWING, Ventricular arrhythmia. History of Any Multi-Drug Resistant Organisms: None Reported Additional Past Surgical History / Comment(s): left eye retinal repair, loc cataracts removed, colonoscopy Past Anesthesia/Blood Transfusion Reactions: No Reported Reaction Past Psychological History: No Psychological Hx Reported Smoking Status: Never smoker Past Alcohol Use History: Rare Past Drug Use History: None Reported - Past Family History Sister(s) Family Medical History: Cancer Medications and Allergies Home Medications Medication Instructions Recorded Confirmed Type Doxazosin [Cardura] 2 mg PO DAILY 12/29/15 03/25/25 History Latanoprost Ophth [Xalatan 0.005%] 1 drop LEFT EYE DAILY 12/29/15 03/25/25 History Levothyroxine Sodium [Synthroid] 50 mcg PO DAILY 12/29/15 03/25/25 History Simvastatin [Zocor] 40 mg PO HS 12/29/15 03/25/25 History Losartan [Cozaar] 50 mg PO DAILY 03/25/25 03/25/25 History Montelukast [Singulair] 10 mg PO DAILY 03/25/25 03/25/25 History Timolol 0.5% Ophth Soln [Timoptic 1 drop LEFT EYE DAILY 03/25/25 03/25/25 History 0.5% Ophth Soln] Allergies Allergy/AdvReac Type Severity Reaction Status Date / Time tree and shrub pollen Allergy Unknown Verified 03/25/25 10:24 Physical Exam Vitals: Vital Signs Temp Pulse Resp BP Pulse Ox 03/25/25 11:13 65 16 93/34 95 03/25/25 08:11 95 03/25/25 07:19 98.4 F 03/25/25 06:20 62 18 115/86 95 03/25/25 05:36 100.5 F H 78 20 126/56 95 Intake and Output 03/24/25 03/25/25 03/25/25 22:59 06:59 14:59 Other: Voiding Method Toilet Weight 102.058 kg GENERAL DESCRIPTION: Elderly male lying in bed, no distress. No tachypnea or accessory muscle of respiration use. HEENT: Shows Pallor , no scleral icterus. Oral mucous membrane is dry. No pharyngeal erythema or thrush NECK: Trachea central, no thyromegaly. LUNGS: Unlabored breathing. Clear to auscultation anteriorly. No wheeze or crackle. HEART: S1, S2, regular rate and rhythm. No loud murmur ABDOMEN: Soft, no tenderness , guarding or rigidity, no organomegaly EXTREMITIES: No edema of feet. SKIN: No rash, no masses palpable. NEUROLOGICAL: The patient is awake, alert, oriented x3, mood and affect normal. Results CBC & Chem 7: 03/25/25 05:49 03/25/25 05:49 Labs: Abnormal Lab Results - Last 24 Hours (Table) 03/25/25 03/25/25 03/25/25 Range/Units 05:41 05:49 05:49 WBC 14.01 H (4.50-10.00) 10*3/uL RBC 3.86 L (4.40-5.60) 10*6/uL Hgb 12.1 L (13.0-17.0) g/dL Hct 36.4 L (39.6-50.0) % Immature Gran # 0.10 H (0.00-0.04) 10*3/uL Neutrophils # 12.63 H (1.80-7.70) 10*3/uL Lymphocytes # 0.69 L (0.90-5.00) 10*3/uL BUN 25 H (9-20) mg/dL Glucose 109 H (74-99) mg/dL Urine Protein 1+ H (Negative) Urine Ketones 1+ H (Negative) Ur Leukocyte Esterase Large H (Negative) Urine RBC 23 H (0-5) /hpf Urine WBC 166 H (0-5) /hpf Urine WBC Clumps Occasional H (None) /hpf Urine Bacteria Rare H (None) /hpf Hyaline Casts 13 H (0-2) /lpf Urine Mucus Occasional H (None) /hpf Assessment and Plan (1) Sepsis Current Visit: Yes Status: Acute Code(s): A41.9 - SEPSIS, UNSPECIFIED ORGANISM SNOMED Code(s): 88055007 (2) Acute UTI Current Visit: Yes Status: Acute Code(s): N39.0 - URINARY TRACT INFECTION, SITE NOT SPECIFIED SNOMED Code(s): 765691106 Plan: 1patient presented the hospital with sepsis in this patient who did have fever elevated white count meeting criteria for SIRS/sepsis also likely urinary in this patient has significant urinary symptoms positive UA likely symptomatic UTI likely from attending gram-negative pathogen. Some abnormality reported on chest x-ray however did not have significant respiratory symptoms to be suspicious for pneumonia 2patient be treated with Rocephin 2 g daily while waiting for the culture to finalize Question concern answered We will follow on clinical condition and cultures to further adjust medication if needed Thank you for this consultation we will follow the patient along with you Dictation was produced using Laser View dictation software. please excuse any grammatical, word or spelling errors. Time with Patient: Greater than 30
[2025-03-26 08:08] LABS: Basophils # (A) 0.03 X 10*3/uL (0.00-0.10); Basophils % (A) 0.2 %; Eosinophils # (A) 0.01 X 10*3/uL (0.04-0.35); Eosinophils % (A) 0.1 %; HCT 33.3 % (39.6-50.0); HGB 10.7 g/dL (13.0-17.0); Immature Grans, Automated 0.70 %; Lymphocytes # (A) 1.28 X 10*3/uL (0.90-5.00); Lymphocytes % (A) 9.6 %; MCH 30.8 pg (27.0-32.0); MCHC 32.1 g/dL (32.0-37.0); MCV 96.0 FL (80.0-97.0); Monocytes # (A) 1.42 X 10*3/uL (0.20-1.00); Monocytes % (A) 10.6 %; NRBC Per 100 WBC 0 X 10*3/uL (0.00-0.01); Neutrophils # (A) 10.57 X 10*3/uL (1.80-7.70); Neutrophils % (A) 78.8 %; Platelet Count 175 X 10*3/uL (140-440); RBC 3.47 X 10*6/uL (4.40-5.60); RDW 13.3 % (11.5-14.5); WBC 13.40 X 10*3/uL (4.50-10.00)
[2025-03-26 08:20] LABS: ALT 37 U/L (10-49); AST 40 U/L (14-35); Albumin 3.4 g/dL (3.8-4.9); Albumin/Globulin Ratio 1.62 Ratio (1.60-3.17); Alkaline Phosphatase 88 U/L (41-126); Anion Gap 12.80 mmol/L (4.00-12.00); BUN/Creat Ratio 18.42 Ratio (12.00-20.00); Blood Urea Nitrogen 22.1 mg/dL (9.0-27.0); Calcium 8.0 mg/dL (8.7-10.3); Carbon Dioxide 20.2 mmol/L (21.6-31.8); Chloride 106 mmol/L (96-109); Globulin 2.1 g/dL (1.6-3.3); Glucose 112 mg/dL (70-110); Lipase 21 U/L (14-60); Magnesium 1.6 mg/dL (1.5-2.4); Potassium 4.1 mmol/L (3.5-5.5); Sodium 139 mmol/L (135-145); Total Protein 5.5 g/dL (6.2-8.2)
[2025-03-26] MEDS: DOXAZOSIN 2 MG TAB PO SCH (09:09)
[2025-03-26] MEDS: ENOXAPARIN 40 MG/0.4 ML SYRINGE SQ SCH (09:09)
[2025-03-26] MEDS: TIMOLOL 0.5% OPHTH DROPS 5 ML BTL LEFT EYE SCH (11:09)
--- NOTE | 2025-03-26 11:42 | P.PN ---
Subjective Progress Note Date: 03/26/25 HISTORY OF PRESENT ILLNESS: This is an 84-year-old male with previous medical history significant for hypertension and hypertensive cardiovascular disease, hyperlipidemia, hypothyroidism, obesity with obstructive sleep apnea, glaucoma, chronic reflux esophagitis, history of vitamin D deficiency, patient presented to the emergency department yesterday with increased fever and chills associated with increased urinary frequency and dysuria, he was found to have a leukocytosis with a white count of 17,000, his urinalysis showed evidence of urinary tract infection, patient was feeling okay at that time he was given IV fluid resuscitation, he was placed on oral antibiotic, he came back later on today in the morning with increased fever and chills associated with increased urinary frequency and dysuria, because of the presentation his was admitted to the hospital for urinary tract infection with sepsis, blood culture and urine culture were obtained, started the patient on ceftriaxone 2 g repeated back every 24 hours, infectious ease consultation was obtained, patient was placed on IV fluid resuscitation in the form of normal saline at 100 cc an hour, patient will be admitted to the hospital for further evaluation and recommendation. Patient did have a twelve-lead EKG did not show evidence of acute abnormalities, he did have a chest x-ray that did show some prominence of the right more than the left suggestive of inflammatory condition, we will follow-up with the patient very c giacomoly, I will obtain a CT scan of the abdomen pelvis with contrast for further evaluation recommendation. 03/26: Patient sitting up in a chair in no apparent distress, he denies any chest pain, shortness of abdominal pain, nausea vomiting or diarrhea he has no fever or chills at this time, urine culture still pending, continue ceftriaxone 2 g piggyback every 24 hours, hopefully will get his culture tomorrow morning, patient appears to be somewhat fluid overloaded, he appears to have 3 L nasal c annula, oxygen saturation 92%, I will discontinue IV fluid, start the patient on Lasix 40 mg p.o. x 1, patient will be given 1 dose of potassium supplement 20 mill: X 1, follow-up with the patient very closely, repeat chest x-ray. REVIEW OF SYSTEMS: Constitutional: Positive for documented fever, no chills, no night sweats. No weight change. No weakness, fatigue or lethargy. No daytime sleepiness. EENT: No headache. No blurred vision or double vision, no loss of vision. No loss of Hearing, no ringing in the ears, no dizziness. No nasal drainage or congestion. No epistaxis. No sore throat. Lungs: poitive for shortness of breath, no cough, no sputum production. No wheezing. Reports dyspnea with activity. Cardiovascular: No chest pain, no lower extremity edema. No palpitations. No paroxysmal nocturnal dyspnea. No orthopnea. No lightheadedness or dizziness. No syncopal episodes. Abdominal: Reports abdominal pain. No nausea, vomiting. No diarrhea. No constipation. No bloody or tarry stools reports loss of appetite. Genitourinary: Positive for dysuria, increased frequency, for urgency. No urinary retention. Musculoskeletal: No myalgias. No muscle weakness, no gait dysfunction, no frequent falls. No back pain. No neck pain. Integumentary: No wounds, no lesions. No rash or pruritus. No unusual bruising. No change in hair or nails. Neurologic: No aphasia. No facial droop. No change in mentation. No head injury. No headache. No paralysis. No paresthesia. Psychiatric: No depression. No anxiety. No mood swings. Endocrine: No abnormal blood sugars. No weight change. PHYSICAL EXAMINATION: General: 84-year-old male lying down in bed in no distress. HEENT: Head is atraumatic, normocephalic, pupils were equal round reactive to light and recommendation, extraocular muscle movement were intact, sclera nonicteric, conjunctivae were pale, mucous membranes of the mouth are somewhat dry. Neck: Supple, no JVP, normal carotid upstroke bilaterally, no lymphadenopathy. Chest: Decreased breath sounds at the bases, few rhonchi, no expiratory wheezes, no chest wall tenderness, no intercostal retractions. Heart: First heart sound is normal, second heart sounds normal there is systolic ejection murmur 2/6 located left sternal border. Abdomen: Soft, nontender, nondistended, positive bowel sounds. Extremities: There is +1 edema no calf tenderness DP +2 bilaterally. Neurologic examination: Patient is awake alert and oriented x3, cranial nerves II-12 appear grossly intact, muscle power were 5 out of 5 in upper extremities and 5 out of 5 in bilateral lower extremities, deep tendon reflexes normal bilaterally. ASSESSMENT AND PLAN: 1. Urinary tract infection with sepsis. Blood culture, urine culture, start the patient on ceftriaxone 2 g epic back every 24 hours, follow-up with the patient very closely, continue IV fluid resuscitation in the form of normal saline at 100 cc an hour, infectious consultation Dr. Martinez 2. Hypertension and hypertensive cardiovascular disease continue patient on losartan 50 mg as of today monitor the patient blood pressure very closely. 3 mixed hyperlipidemia. Continue patient on simvastatin 40 mg at bedtime,. Monitor lipid panel, keep LDL 55-70. 4 hypothyroidism. Continue levothyroxine 50 mcg orally once every day, monitor thyroid function test.. 5. History of glaucoma. Continue patient on latanoprost 1 drop in the left eye at bedtime along with timolol twice every day. 6.GERD with esophagitis. Continue Protonix 40 mg orally once every day. 7. Allergic rhinitis. Continue montelukast 10 mg at bedtime, along with Claritin 10 mg orally once every day. 8. Enlarged prostate. Continue doxazosin 2 mg orally once every day. 9. Vitamin D deficiency. Continue vitamin D3 2000 units once every day. 10. Obesity with obstructive sleep apnea. Continue with CPAP. 11. Nonrheumatic mitral regurgitation echocardiogram is up-to-date. Continue losartan 50 mg once every day. 12. DVT prophylaxis. Continue patient on Lovenox 40 mg subcutaneously every 24 hours. 13. GI prophylaxis. Continue patient on Protonix 40 mg once every day. 14. fluid overload discontinue IV fluid, start the patient on Lasix 40 mg IV x 1, potassium supplement, chest x-ray. 15. Home tomorrow morning Objective - Vital Signs Vital signs: Vital Signs Temp 98.6 F 03/26/25 06:40 Pulse 80 03/26/25 06:40 Resp 16 03/26/25 06:40 BP 119/66 03/26/25 06:40 Pulse Ox 92 L 03/26/25 06:40 FiO2 Intake & Output 03/25/25 03/26/25 03/26/25 18:59 06:59 18:59 Intake Total 1020 300 480 Output Total 1 Balance 1020 299 480 Weight 102.058 kg Intake: Oral 1020 300 480 Output: Urine 1 Other: Voiding Method Toilet # Voids 2 1 - Labs CBC & Chem 7: 03/26/25 04:56 03/26/25 04:56 Labs: Abnormal Lab Results - Last 24 Hours (Table) 03/25/25 03/26/25 03/26/25 Range/Units 05:49 04:56 04:56 WBC 13.40 H (4.50-10.00) X 10*3/uL RBC 3.47 L (4.40-5.60) X 10*6/uL Hgb 10.7 L (13.0-17.0) g/dL Hct 33.3 L (39.6-50.0) % MPV 12.6 H (9.5-12.2) FL Immature Gran # 0.09 H (0.00-0.04) X 10*3/uL Neutrophils # 12.63 H 10.57 H (1.80-7.70) 10*3/uL Lymphocytes # 0.69 L (0.90-5.00) 10*3/uL Monocytes # 1.42 H (0.20-1.00) X 10*3/uL Eosinophils # 0.01 L (0.04-0.35) X 10*3/uL Carbon Dioxide 20.2 L (21.6-31.8) mmol/L Anion Gap 12.80 H (4.00-12.00) mmol/L Glucose 112 H (70-110) mg/dL Calcium 8.0 L (8.7-10.3) mg/dL Phosphorus 2.2 L (2.4-5.1) mg/dL AST 40 H (14-35) U/L Total Protein 5.5 L (6.2-8.2) g/dL Albumin 3.4 L (3.8-4.9) g/dL
[2025-03-26] MEDS: POTASSIUM CHLORIDE ER 20 MEQ TAB.ER PO STA (11:59)
[2025-03-26] MEDS: FUROSEMIDE 10 MG/ML 4 ML VIAL IV STA (11:59)
--- NOTE | 2025-03-26 12:41 | XR ---
EXAMINATION TYPE: XR chest 1V DATE OF EXAM: 03/26/2025 12:03 PM COMPARISON: Chest radiographs from 03/25/2025. CLINICAL INDICATION: Male, 84 years old with history of ROSAURA; TECHNIQUE: XR chest 1V Frontal view of the chest. FINDINGS: Lungs/Pleura: There is no evidence of pleural effusion, focal consolidation, or pneumothorax. Pulmonary vascularity: Unremarkable. Heart/mediastinum: Cardiomediastinal silhouette is unremarkable. Musculoskeletal: No acute osseous pathology. Other findings: None IMPRESSION: No acute cardiopulmonary disease/process. [facility], , 03/26/2025 12:39 PM
--- NOTE | 2025-03-26 14:31 | P.PN ---
Subjective Progress Note Date: 03/26/25 Principal diagnosis: Reason for follow-up is UTI Patient is a 84-year-old male with a past medical history significant for Hyperlipidemia, Hypertension, Osteoarthritis (OA), Sleep Apnea/CPAP/BIPAP, Thyroid Disorder presenting to the hospital for evaluation of fever with rigors and chills, positive UA concerning for urinary tract infection. On today's evaluation that is 03/26/2025,the patient did have resolution of his fever and is afebrile this morning, patient is on room air not requiring supplemental oxygen and mentioned breathing comfortably with no chest pain or cough.Patient denies having any nausea or vomiting, no abdominal pain and no diarrhea has been reported. Patient white count slightly over 13.40, creatinine is 1.2 cultures currently pending Objective - Vital Signs Vital signs: Vital Signs Temp 97.8 F 03/26/25 12:32 Pulse 63 03/26/25 12:32 Resp 16 03/26/25 12:32 BP 111/56 03/26/25 12:32 Pulse Ox 95 03/26/25 12:32 FiO2 Intake & Output 03/25/25 03/26/25 03/26/25 18:59 06:59 18:59 Intake Total 1020 300 720 Output Total 1 Balance 1020 299 720 Weight 102.058 kg Intake: Oral 1020 300 720 Output: Urine 1 Other: Voiding Method Toilet Toilet # Voids 2 1 - Exam GENERAL DESCRIPTION: An elderly male lying in bed in no distress RESPIRATORY SYSTEM: Unlabored breathing , decreased breath sounds at bases HEART: S1 S2 regular rate and rhythm , ABDOMEN: Soft , no tenderness EXTREMITIES: No edema feet - Labs CBC & Chem 7: 03/26/25 04:56 03/26/25 04:56 Labs: Abnormal Lab Results - Last 24 Hours (Table) 03/26/25 03/26/25 Range/Units 04:56 04:56 WBC 13.40 H (4.50-10.00) X 10*3/uL RBC 3.47 L (4.40-5.60) X 10*6/uL Hgb 10.7 L (13.0-17.0) g/dL Hct 33.3 L (39.6-50.0) % MPV 12.6 H (9.5-12.2) FL Immature Gran # 0.09 H (0.00-0.04) X 10*3/uL Neutrophils # 10.57 H (1.80-7.70) X 10*3/uL Monocytes # 1.42 H (0.20-1.00) X 10*3/uL Eosinophils # 0.01 L (0.04-0.35) X 10*3/uL Carbon Dioxide 20.2 L (21.6-31.8) mmol/L Anion Gap 12.80 H (4.00-12.00) mmol/L Glucose 112 H (70-110) mg/dL Calcium 8.0 L (8.7-10.3) mg/dL Phosphorus 2.2 L (2.4-5.1) mg/dL AST 40 H (14-35) U/L Total Protein 5.5 L (6.2-8.2) g/dL Albumin 3.4 L (3.8-4.9) g/dL Microbiology - Last 24 Hours (Table) 03/25/25 05:40 Urine Culture - Final Urine,Clean Catch 03/25/25 05:49 Blood Culture - Preliminary Blood Assessment and Plan (1) Sepsis Current Visit: Yes Status: Acute Code(s): A41.9 - SEPSIS, UNSPECIFIED ORGANISM SNOMED Code(s): 63151102 (2) Acute UTI Current Visit: Yes Status: Acute Code(s): N39.0 - URINARY TRACT INFECTION, SITE NOT SPECIFIED SNOMED Code(s): 532008053 Plan: 1patient presented the hospital with sepsis in this patient who did have fever elevated white count meeting criteria for SIRS/sepsis also likely urinary in this patient has significant urinary symptoms positive UA likely symptomatic UTI likely from attending gram-negative pathogen. Some abnormality reported on chest x-ray however did not have significant respiratory symptoms to be suspicious for pneumonia 2patient did have improvement in the fever pattern white count is trending down we will continue with Rocephin while waiting for the culture to finalize Dictation was produced using [employer] dictation software. please excuse any grammatical, word or spelling errors. Time with Patient: Less than 30
[2025-03-26] MEDS: LATANOPROST 0.005% OPHTH DROPS 2.5 ML BTL LEFT EYE SCH (22:56)
[2025-03-27 08:02] LABS: HCT 35.7 % (39.6-50.0); HGB 11.5 g/dL (13.0-17.0); MCH 30.7 pg (27.0-32.0); MCHC 32.2 g/dL (32.0-37.0); MCV 95.5 FL (80.0-97.0); NRBC Per 100 WBC 0 X 10*3/uL (0.00-0.01); Platelet Count 195 X 10*3/uL (140-440); RBC 3.74 X 10*6/uL (4.40-5.60); RDW 13.4 % (11.5-14.5); WBC 14.54 X 10*3/uL (4.50-10.00)
[2025-03-27 08:07] LABS: ALT 34 U/L (10-49); AST 37 U/L (14-35); Albumin 3.8 g/dL (3.8-4.9); Albumin/Globulin Ratio 1.46 Ratio (1.60-3.17); Alkaline Phosphatase 97 U/L (41-126); Anion Gap 12.10 mmol/L (4.00-12.00); BUN/Creat Ratio 17.60 Ratio (12.00-20.00); Blood Urea Nitrogen 17.6 mg/dL (9.0-27.0); Calcium 8.6 mg/dL (8.7-10.3); Carbon Dioxide 23.9 mmol/L (21.6-31.8); Chloride 105 mmol/L (96-109); Globulin 2.6 g/dL (1.6-3.3); Glucose 104 mg/dL (70-110); Potassium 3.8 mmol/L (3.5-5.5); Sodium 141 mmol/L (135-145); Total Protein 6.4 g/dL (6.2-8.2)
[2025-03-27 09:20] LABS: Basophils # (A) 0.04 X 10*3/uL (0.00-0.10); Basophils % (A) 0.3 %; Eosinophils # (A) 0.02 X 10*3/uL (0.04-0.35); Eosinophils % (A) 0.1 %; Immature Grans, Automated 0.50 %; Lymphocytes # (A) 1.32 X 10*3/uL (0.90-5.00); Lymphocytes % (A) 9.1 %; Monocytes # (A) 1.79 X 10*3/uL (0.20-1.00); Monocytes % (A) 12.3 %; Neutrophils # (A) 11.30 X 10*3/uL (1.80-7.70); Neutrophils % (A) 77.7 %; RBC Morphology Normal (Normal)
--- NOTE | 2025-03-27 15:21 | P.PN ---
Subjective Progress Note Date: 03/27/25 HISTORY OF PRESENT ILLNESS: This is an 84-year-old male with previous medical history significant for hypertension and hypertensive cardiovascular disease, hyperlipidemia, hypothyroidism, obesity with obstructive sleep apnea, glaucoma, chronic reflux esophagitis, history of vitamin D deficiency, patient presented to the emergency department yesterday with increased fever and chills associated with increased urinary frequency and dysuria, he was found to have a leukocytosis with a white count of 17,000, his urinalysis showed evidence of urinary tract infection, patient was feeling okay at that time he was given IV fluid resuscitation, he was placed on oral antibiotic, he came back later on today in the morning with increased fever and chills associated with increased urinary frequency and dysuria, because of the presentation his was admitted to the hospital for urinary tract infection with sepsis, blood culture and urine culture were obtained, started the patient on ceftriaxone 2 g repeated back every 24 hours, infectious ease consultation was obtained, patient was placed on IV fluid resuscitation in the form of normal saline at 100 cc an hour, patient will be admitted to the hospital for further evaluation and recommendation. Patient did have a twelve-lead EKG did not show evidence of acute abnormalities, he did have a chest x-ray that did show some prominence of the right more than the left suggestive of inflammatory condition, we will follow-up with the patient very c giacomoly, I will obtain a CT scan of the abdomen pelvis with contrast for further evaluation recommendation. 03/26: Patient sitting up in a chair in no apparent distress, he denies any chest pain, shortness of abdominal pain, nausea vomiting or diarrhea he has no fever or chills at this time, urine culture still pending, continue ceftriaxone 2 g piggyback every 24 hours, hopefully will get his culture tomorrow morning, patient appears to be somewhat fluid overloaded, he appears to have 3 L nasal c annula, oxygen saturation 92%, I will discontinue IV fluid, start the patient on Lasix 40 mg p.o. x 1, patient will be given 1 dose of potassium supplement 20 mill: X 1, follow-up with the patient very closely, repeat chest x-ray. 03/27: Patient is sitting up in bed in no apparent distress, he had fever today again 1-1.3 he denies any chest pain at this time, he has no shortness of breath, he does complain of some headache, he has no abdominal pain, he did have a large bowel movement today, he did have a chest x-ray yesterday that did not show evidence of acute abnormalities, he did diurese very well with the Lasix, he has not had any major issues beside that, his urine culture did not show any evidence of acute abnormalities, we will keep the patient in the hospital for another 24 hours, continue current IV antibiotic in the form of ceftriaxone, incentive spirometer, continue CPAP, hopefully will discharge the patient home tomorrow morning, if the patient defervesced. REVIEW OF SYSTEMS: Constitutional: Positive for documented fever, no chills, no night sweats. No weight change. No weakness, fatigue or lethargy. No daytime sleepiness. EENT: No headache. No blurred vision or double vision, no loss of vision. No loss of Hearing, no ringing in the ears, no dizziness. No nasal drainage or congestion. No epistaxis. No sore throat. Lungs: poitive for shortness of breath, no cough, no sputum production. No wheezing. Reports dyspnea with activity. Cardiovascular: No chest pain, no lower extremity edema. No palpitations. No paroxysmal nocturnal dyspnea. No orthopnea. No lightheadedness or dizziness. No syncopal episodes. Abdominal: Reports abdominal pain. No nausea, vomiting. No diarrhea. No constipation. No bloody or tarry stools reports loss of appetite. Genitourinary: Positive for dysuria, increased frequency, for urgency. No urinary retention. Musculoskeletal: No myalgias. No muscle weakness, no gait dysfunction, no frequent falls. No back pain. No neck pain. Integumentary: No wounds, no lesions. No rash or pruritus. No unusual bruising. No change in hair or nails. Neurologic: No aphasia. No facial droop. No change in mentation. No head injury. No headache. No paralysis. No paresthesia. Psychiatric: No depression. No anxiety. No mood swings. Endocrine: No abnormal blood sugars. No weight change. PHYSICAL EXAMINATION: General: 84-year-old male lying down in bed in no distress. HEENT: Head is atraumatic, normocephalic, pupils were equal round reactive to light and recommendation, extraocular muscle movement were intact, sclera nonicteric, conjunctivae were pale, mucous membranes of the mouth are somewhat dry. Neck: Supple, no JVP, normal carotid upstroke bilaterally, no lymphadenopathy. Chest: Decreased breath sounds at the bases, few rhonchi, no expiratory wheezes, no chest wall tenderness, no intercostal retractions. Heart: First heart sound is normal, second heart sounds normal there is systolic ejection murmur 2/6 located left sternal border. Abdomen: Soft, nontender, nondistended, positive bowel sounds. Extremities: There is +1 edema no calf tenderness DP +2 bilaterally. Neurologic examination: Patient is awake alert and oriented x3, cranial nerves II-12 appear grossly intact, muscle power were 5 out of 5 in upper extremities and 5 out of 5 in bilateral lower extremities, deep tendon reflexes normal bilaterally. ASSESSMENT AND PLAN: 1. Urinary tract infection with sepsis. With recurrent fever as well, patient does not appear to be ill at this point in time, continue with ceftriaxone 2 g IV piggyback every 24 hours, urine culture is negative, blood cultures are negative, await infectious disease input. Continue incentive parameter, continue CPAP for now, chest x-ray reviewed did not show evidence of acute abnormalities. 2. Hypertension and hypertensive cardiovascular disease continue patient on losartan 50 mg as of today monitor the patient blood pressure very closely. 3 mixed hyperlipidemia. Continue patient on simvastatin 40 mg at bedtime,. Monitor lipid panel, keep LDL 55-70. 4 hypothyroidism. Continue levothyroxine 50 mcg orally once every day, monitor thyroid function test.. 5. History of glaucoma. Continue patient on latanoprost 1 drop in the left eye at bedtime along with timolol twice every day. 6.GERD with esophagitis. Continue Protonix 40 mg orally once every day. 7. Allergic rhinitis. Continue montelukast 10 mg at bedtime, along with Claritin 10 mg orally once every day. 8. Enlarged prostate. Continue doxazosin 2 mg orally once every day. 9. Vitamin D deficiency. Continue vitamin D3 2000 units once every day. 10. Obesity with obstructive sleep apnea. Continue with CPAP. 11. Nonrheumatic mitral regurgitation echocardiogram is up-to-date. Continue losartan 50 mg once every day. 12. DVT prophylaxis. Continue patient on Lovenox 40 mg subcutaneously every 24 hours. 13. GI prophylaxis. Continue patient on Protonix 40 mg once every day. 14. fluid overload resolved. 15. Home tomorrow morning Objective - Vital Signs Vital signs: Vital Signs Temp 98.4 F 03/27/25 12:36 Pulse 59 L 03/27/25 12:36 Resp 20 03/27/25 12:36 BP 145/71 03/27/25 12:36 Pulse Ox 97 03/27/25 12:36 FiO2 Intake & Output 03/26/25 03/27/25 03/27/25 18:59 06:59 18:59 Intake Total 3230 Balance 3230 Intake: Intake, IV Titration 770 Amount Sodium Chloride 0.9% 1, 720 000 ml @ 20 mls/hr IV . Q24H MAR[facility] Rx#:[id number] cefTRIAXone 2 gm In 50 Sodium Chloride 0.9% 50 ml @ 100 mls/hr IVPB Q24H [facility] Rx#:[id number] Oral 2460 Other: Voiding Method Toilet Toilet # Voids 6 2 # Bowel Movements 2 - Labs CBC & Chem 7: 03/27/25 05:47 03/27/25 05:47 Labs: Abnormal Lab Results - Last 24 Hours (Table) 03/27/25 03/27/25 Range/Units 05:47 05:47 WBC 14.54 H (4.50-10.00) X 10*3/uL RBC 3.74 L (4.40-5.60) X 10*6/uL Hgb 11.5 L (13.0-17.0) g/dL Hct 35.7 L (39.6-50.0) % MPV 12.7 H (9.5-12.2) FL Immature Gran # 0.07 H (0.00-0.04) X 10*3/uL Neutrophils # 11.30 H (1.80-7.70) X 10*3/uL Monocytes # 1.79 H (0.20-1.00) X 10*3/uL Eosinophils # 0.02 L (0.04-0.35) X 10*3/uL Anion Gap 12.10 H (4.00-12.00) mmol/L Calcium 8.6 L (8.7-10.3) mg/dL AST 37 H (14-35) U/L Albumin/Globulin Ratio 1.46 L (1.60-3.17) Ratio Microbiology - Last 24 Hours (Table) 03/25/25 05:49 Blood Culture - Preliminary Blood 03/25/25 05:40 Urine Culture - Final Urine,Clean Catch
--- NOTE | 2025-03-27 15:48 | P.PN ---
Subjective Progress Note Date: 03/27/25 Principal diagnosis: Reason for follow-up is UTI Patient is a 84-year-old male with a past medical history significant for Hyperlipidemia, Hypertension, Osteoarthritis (OA), Sleep Apnea/CPAP/BIPAP, Thyroid Disorder presenting to the hospital for evaluation of fever with rigors and chills, positive UA concerning for urinary tract infection. On today's evaluation that is 03/27/2025, the patient did have a fever of 101.1 F this morning patient is afebrile this afternoon the patient is feeling better breathing comfortably no chest pain shortness of breath or cough no nausea vomiting no abdominal pain or diarrhea. Patient white count slightly up to 14.54 creatinine is 1.0 initial culture came back negative Objective - Vital Signs Vital signs: Vital Signs Temp 98.4 F 03/27/25 12:36 Pulse 59 L 03/27/25 12:36 Resp 20 03/27/25 12:36 BP 145/71 03/27/25 12:36 Pulse Ox 97 03/27/25 12:36 FiO2 Intake & Output 03/26/25 03/27/25 03/27/25 18:59 06:59 18:59 Intake Total 3230 Balance 3230 Intake: Intake, IV Titration 770 Amount Sodium Chloride 0.9% 1, 720 000 ml @ 20 mls/hr IV . Q24H [facility] Rx#:[id number] cefTRIAXone 2 gm In 50 Sodium Chloride 0.9% 50 ml @ 100 mls/hr IVPB Q24H [facility] Rx#:[id number] Oral 2460 Other: Voiding Method Toilet Toilet # Voids 6 2 # Bowel Movements 2 - Exam GENERAL DESCRIPTION: An elderly male lying in bed in no distress RESPIRATORY SYSTEM: Unlabored breathing , decreased breath sounds at bases HEART: S1 S2 regular rate and rhythm , ABDOMEN: Soft , no tenderness EXTREMITIES: No edema feet - Labs CBC & Chem 7: 03/27/25 05:47 03/27/25 05:47 Labs: Abnormal Lab Results - Last 24 Hours (Table) 03/27/25 03/27/25 Range/Units 05:47 05:47 WBC 14.54 H (4.50-10.00) X 10*3/uL RBC 3.74 L (4.40-5.60) X 10*6/uL Hgb 11.5 L (13.0-17.0) g/dL Hct 35.7 L (39.6-50.0) % MPV 12.7 H (9.5-12.2) FL Immature Gran # 0.07 H (0.00-0.04) X 10*3/uL Neutrophils # 11.30 H (1.80-7.70) X 10*3/uL Monocytes # 1.79 H (0.20-1.00) X 10*3/uL Eosinophils # 0.02 L (0.04-0.35) X 10*3/uL Anion Gap 12.10 H (4.00-12.00) mmol/L Calcium 8.6 L (8.7-10.3) mg/dL AST 37 H (14-35) U/L Albumin/Globulin Ratio 1.46 L (1.60-3.17) Ratio Microbiology - Last 24 Hours (Table) 03/25/25 05:49 Blood Culture - Preliminary Blood 03/25/25 05:40 Urine Culture - Final Urine,Clean Catch Assessment and Plan (1) Sepsis Current Visit: Yes Status: Acute Code(s): A41.9 - SEPSIS, UNSPECIFIED ORGANISM SNOMED Code(s): 11049161 (2) Acute UTI Current Visit: Yes Status: Acute Code(s): N39.0 - URINARY TRACT INFECTION, SITE NOT SPECIFIED SNOMED Code(s): 313303766 Plan: 1patient presented the hospital with sepsis in this patient who did have fever elevated white count meeting criteria for SIRS/sepsis also likely urinary in this patient has significant urinary symptoms positive UA likely symptomatic UTI likely from attending gram-negative pathogen. Some abnormality reported on chest x-ray however did not have significant respiratory symptoms to be suspicious for pneumonia 2patient did have fever this morning initial culture have been negative we will repeat his UA will also check an ultrasound of the kidney bladder intermittent evidence of any structure abnormality 3pt to continue Rocephin question concern answered Dictation was produced using [employer] dictation software. please excuse any grammatical, word or spelling errors. Time with Patient: Less than 30
--- NOTE | 2025-03-27 16:04 | P.HPIM ---
History of Present Illness H&P Date: 03/25/25 Chief Complaint: UTI with sepsis HISTORY OF PRESENT ILLNESS: This is an 84-year-old male with previous medical history significant for hypertension and hypertensive cardiovascular disease, hyperlipidemia, hypothyroidism, obesity with obstructive sleep apnea, glaucoma, chronic reflux esophagitis, history of vitamin D deficiency, patient presented to the emergency department yesterday with increased fever and chills associated with increased urinary frequency and dysuria, he was found to have a leukocytosis with a white count of 17,000, his urinalysis showed evidence of urinary tract infection, patient was feeling okay at that time he was given IV fluid resuscitation, he was placed on oral antibiotic, he came back later on today in the morning with increased fever and chills associated with increased urinary frequency and dysuria, because of the presentation his was admitted to the hospital for urinary tract infection with sepsis, blood culture and urine culture were obtained, started the patient on ceftriaxone 2 g repeated back every 24 hours, infectious ease consultation was obtained, patient was placed on IV fluid resuscitation in the form of normal saline at 100 cc an hour, patient will be admitted to the hospital for further evaluation and recommendation. Patient did have a twelve-lead EKG did not show evidence of acute abnormalities, he did have a chest x-ray that did show some prominence of the right more than the left suggestive of inflammatory condition, we will follow-up with the patient very closely, I will obtain a CT scan of the abdomen pelvis with contrast for further evaluation recommendation. REVIEW OF SYSTEMS: Constitutional: Positive for documented fever, no chills, no night sweats. No weight change. No weakness, fatigue or lethargy. No daytime sleepiness. EENT: No headache. No blurred vision or double vision, no loss of vision. No loss of Hearing, no ringing in the ears, no dizziness. No nasal drainage or congestion. No epistaxis. No sore throat. Lungs: No shortness of breath, no cough, no sputum production. No wheezing. Reports dyspnea with activity. Cardiovascular: No chest pain, no lower extremity edema. No palpitations. No paroxysmal nocturnal dyspnea. No orthopnea. No lightheadedness or dizziness. No syncopal episodes. Abdominal: Reports abdominal pain. No nausea, vomiting. No diarrhea. No constipation. No bloody or tarry stools reports loss of appetite. Genitourinary: Positive for dysuria, increased frequency, for urgency. No urinary retention. Musculoskeletal: No myalgias. No muscle weakness, no gait dysfunction, no frequent falls. No back pain. No neck pain. Integumentary: No wounds, no lesions. No rash or pruritus. No unusual bruising. No change in hair or nails. Neurologic: No aphasia. No facial droop. No change in mentation. No head injury. No headache. No paralysis. No paresthesia. Psychiatric: No depression. No anxiety. No mood swings. Endocrine: No abnormal blood sugars. No weight change. PAST MEDICAL HISTORY: Hypertension and hypertensive cardiovascular disease. Mixed hyperlipidemia. Hypothyroidism. Obesity with obstructive sleep apnea. Glaucoma. Chronic reflux esophagitis Vitamin D deficiency. Nonrheumatic mitral regurgitation. Enlarged prostate. PAST SURGICAL HISTORY: EGD 10/07/2021 Colonoscopy 12/31/2015 Left eye retinal repair Bilateral cataract surgery Colonoscopy 02/03/2022 Basal cell carcinoma removed 11/27/2024 SOCIAL HISTORY: Patient is a lifelong non-smoker, he denies any alcohol ingestion, no drug use or abuse, he drinks about 1 to 2 cups of coffee, he denies any marijuana use, no recreational drugs. FAMILY HISTORY: Father at the age of 95 from old age mother at the age of 93 from congestive heart failure and she had adult onset macular degeneration, patient had 4 sisters 1 at the age of 70 from breast cancer 1 at the age of 74 from colon cancer with mets to the bone and at the age of 90 from old age third 1 patient has 3 sons alive and well. The patient has 1 daughter alive and well. PHYSICAL EXAMINATION: General: 84-year-old male lying down in bed in no distress. HEENT: Head is atraumatic, normocephalic, pupils were equal round reactive to light and recommendation, extraocular muscle movement were intact, sclera nonicteric, conjunctivae were pale, mucous membranes of the mouth are somewhat dry. Neck: Supple, no JVP, normal carotid upstroke bilaterally, no lymphadenopathy. Chest: Decreased breath sounds at the bases, few rhonchi, no expiratory wheezes, no chest wall tenderness, no intercostal retractions. Heart: First heart sound is normal, second heart sounds normal there is systolic ejection murmur 2/6 located left sternal border. Abdomen: Soft, nontender, nondistended, positive bowel sounds. Extremities: There is no edema no calf tenderness DP +2 bilaterally. Neurologic examination: Patient is awake alert and oriented x3, cranial nerves II-12 appear grossly intact, muscle power were 5 out of 5 in upper extremities and 5 out of 5 in bilateral lower extremities, deep tendon reflexes normal bilaterally. ASSESSMENT AND PLAN: 1. Urinary tract infection with sepsis. Blood culture, urine culture, start the patient on ceftriaxone 2 g epic back every 24 hours, follow-up with the patient very closely, continue IV fluid resuscitation in the form of normal saline at 100 cc an hour, infectious consultation Dr. Martinez 2. Hypertension and hypertensive cardiovascular disease continue patient on losartan 50 mg as of today monitor the patient blood pressure very closely. 3 mixed hyperlipidemia. Continue patient on simvastatin 40 mg at bedtime,. M onitor lipid panel, keep LDL 55-70. 4 hypothyroidism. Continue levothyroxine 50 mcg orally once every day, monitor thyroid function test.. 5. History of glaucoma. Continue patient on latanoprost 1 drop in the left eye at bedtime along with timolol twice every day. 6.GERD with esophagitis. Continue Protonix 40 mg orally once every day. 7. Allergic rhinitis. Continue montelukast 10 mg at bedtime, along with Claritin 10 mg orally once every day. 8. Enlarged prostate. Continue doxazosin 2 mg orally once every day. 9. Vitamin D deficiency. Continue vitamin D3 2000 units once every day. 10. Obesity with obstructive sleep apnea. Continue with CPAP. 11. Nonrheumatic mitral regurgitation echocardiogram is up-to-date. Continue losartan 50 mg once every day. 12. DVT prophylaxis. Continue patient on Lovenox 40 mg subcutaneously every 24 hours. 13. GI prophylaxis. Continue patient on Protonix 40 mg once every day. 14. Admit to inpatient. Estimated length of stay 2 midnights. 15. Full code Past Medical History Past Medical History: Hyperlipidemia, Hypertension, Osteoarthritis (OA), Sleep Apnea/CPAP/BIPAP, Thyroid Disorder Additional Past Medical History / Comment(s): SOME TROUBLE SWALLOWING, Ventricular arrhythmia. History of Any Multi-Drug Resistant Organisms: None Reported Additional Past Surgical History / Comment(s): left eye retinal repair, loc cataracts removed, colonoscopy Past Anesthesia/Blood Transfusion Reactions: No Reported Reaction Past Psychological History: No Psychological Hx Reported Smoking Status: Never smoker Past Alcohol Use History: Rare Past Drug Use History: None Reported - Past Family History Sister(s) Family Medical History: Cancer Medications and Allergies Home Medications Medication Instructions Recorded Confirmed Type Cholecalciferol [Vitamin D3] 2,000 unit PO DAILY 12/29/15 02/02/22 History Doxazosin [Cardura] 2 mg PO DAILY 12/29/15 02/02/22 History Glucosamine/Chondro Berman A [Cosamin 2 tab PO DAILY 12/29/15 02/02/22 History Ds Tablet] Latanoprost Ophth [Xalatan 0.005%] 1 drops LEFT EYE DAILY 12/29/15 02/02/22 History Levothyroxine Sodium [Synthroid] 50 mcg PO DAILY 12/29/15 02/02/22 History Quinapril HCl [Accupril] 20 mg PO DAILY 12/29/15 02/02/22 History Simvastatin [Zocor] 40 mg PO HS 12/29/15 02/02/22 History Vit C/E/Zn/Coppr/Lutein/Zeaxan 1 cap PO DAILY 12/29/15 02/02/22 History [Preservision Areds 2 Softgel] Ibuprofen [Motrin] 800 mg PO Q6HR #30 tab 03/10/21 02/02/22 Rx Pantoprazole Sodium [Protonix] 40 mg PO DAILY 03/10/21 02/02/22 History Cephalexin [Keflex] 500 mg PO Q6HR 7 Days #28 cap 03/24/25 Rx Allergies Allergy/AdvReac Type Severity Reaction Status Date / Time tree and shrub pollen Allergy Unknown Verified 03/25/25 05:38 Physical Exam Vitals: Vital Signs Temp Pulse Resp BP Pulse Ox 03/25/25 07:19 98.4 F 03/25/25 06:20 62 18 115/86 95 03/25/25 05:36 100.5 F H 78 20 126/56 95 Intake and Output 03/24/25 03/25/25 03/25/25 22:59 06:59 14:59 Other: Voiding Method Toilet Weight 102.058 kg Results CBC & Chem 7: 03/25/25 05:49 Labs: Abnormal Lab Results - Last 24 Hours (Table) 03/25/25 03/25/25 Range/Units 05:41 05:49 BUN 25 H (9-20) mg/dL Glucose 109 H (74-99) mg/dL Urine Protein 1+ H (Negative) Urine Ketones 1+ H (Negative) Ur Leukocyte Esterase Large H (Negative) Urine RBC 23 H (0-5) /hpf Urine WBC 166 H (0-5) /hpf Urine WBC Clumps Occasional H (None) /hpf Urine Bacteria Rare H (None) /hpf Hyaline Casts 13 H (0-2) /lpf Urine Mucus Occasional H (None) /hpf
[2025-03-27 16:12] LABS: Bacteria,Urine Rare /hpf; Bilirubin,Urine Negative (Negative); Blood,Urine Moderate (Negative); Color,Urine Yellow; Glucose,Urine (UA) Negative (Negative); Ketones,Urine Negative (Negative); Leukocyte Esterase,Urine Large (Negative); Nitrite,Urine Negative (Negative); PH, Urine 6.0 (5.0-8.0); Protein,Urine 1+ (Negative); RBC,Urine 3 /hpf (0-5); Specific Gravity,Urine 1.025 (1.001-1.035); Urobilinogen,Urine 2.0 mg/dL (<2.0); WBC,Urine 128 /hpf (0-5)
[2025-03-28 07:18] VITALS: RESP 16
--- NOTE | 2025-03-28 10:09 | US ---
EXAMINATION TYPE: US kidneys/renal and bladder DATE OF EXAM: 03/28/2025 COMPARISON: NONE CLINICAL INDICATION: Male, 84 years old with history of uti and bacteremia; UTI limitations due to debbie wel gas. TECHNIQUE: Grayscale imaging of the bilateral kidneys and urinary bladder: FINDINGS: EXAM MEASUREMENTS: Right Kidney: 12.1 x 6.2 x 4.9 cm Left Kidney: 12.9 x 7.0 x 6.2 cm Right Kidney: Anechoic area upper pole 3.1 x 3.1 x 2.4 cm lower pole 2.2 x 2.4 x 1.9 cm. Left Kidney: Anechoic area upper pole 5.8 x 3.5 x6.3 cm lower pole 3.6 x 3.1 x 2.8 cm Bladder: Anechoic Bilateral Jets seen: Left only There is no evidence for hydronephrosis at this point in time. No nephrolithiasis is seen. Bilateral simple appearing renal cysts. No solid renal masses are identified. Corticomedullary differentiatio n is maintained bilaterally. The urinary bladder is anechoic. Only the left ureteral jet identified. IMPRESSION: 1. No hydronephrosis or nephrolithiasis. 2. Simple bilateral renal cysts. [facility], , 03/28/2025 10:06 AM
[2025-03-28 12:02] VITALS: BP 147/54; PULSE 67; TEMP 98.1
--- NOTE | 2025-03-28 14:52 | P.PN ---
Subjective Progress Note Date: 03/28/25 Principal diagnosis: Reason for follow-up is UTI Patient is a 84-year-old male with a past medical history significant for Hyperlipidemia, Hypertension, Osteoarthritis (OA), Sleep Apnea/CPAP/BIPAP, Thyroid Disorder presenting to the hospital for evaluation of fever with rigors and chills, positive UA concerning for urinary tract infection. On today's evaluation that is 03/28/2025, patient did have a temperature of 98.1 F this afternoon did have a temperature of 102 F last evening, patient denies having any chills, patient is on room air and breathing comfortably no chest pain or cough, the patient did not have any nausea vomiting abdominal pain or any diarrhea. No new lab has been obtained today repeat urine is still positive cultures are currently pending, ultrasound was negative for any hydronephrosis or nephrolithiasis bilateral renal cyst Objective - Vital Signs Vital signs: Vital Signs Temp 98.1 F 03/28/25 12:01 Pulse 67 03/28/25 12:01 Resp 16 03/28/25 12:01 BP 147/54 03/28/25 12:01 Pulse Ox 100 03/28/25 12:01 FiO2 Intake & Output 03/27/25 03/28/25 03/28/25 18:59 06:59 18:59 Intake Total 1160 600 720 Balance 1160 600 720 Intake: Oral 1160 720 Other 600 Other: Voiding Method Toilet Toilet Toilet Urinal # Voids 3 2 # Bowel Movements 1 - Exam GENERAL DESCRIPTION: An elderly male lying in bed in no distress RESPIRATORY SYSTEM: Unlabored breathing , decreased breath sounds at bases HEART: S1 S2 regular rate and rhythm , ABDOMEN: Soft , no tenderness EXTREMITIES: No edema feet - Labs CBC & Chem 7: 03/27/25 05:47 03/27/25 05:47 Labs: Abnormal Lab Results - Last 24 Hours (Table) 03/27/25 Range/Units 15:50 Urine Protein 1+ H (Negative) Urine Blood Moderate H (Negative) Ur Leukocyte Esterase Large H (Negative) Urine WBC 128 H (0-5) /hpf Urine WBC Clumps Few H (None) /hpf Urine Bacteria Rare H (None) /hpf Microbiology - Last 24 Hours (Table) 03/25/25 05:49 Blood Culture - Preliminary Blood Assessment and Plan (1) Sepsis Current Visit: Yes Status: Acute Code(s): A41.9 - SEPSIS, UNSPECIFIED ORG ANISM SNOMED Code(s): 61767088 (2) Acute UTI Current Visit: Yes Status: Acute Code(s): N39.0 - URINARY TRACT INFECTION, SITE NOT SPECIFIED SNOMED Code(s): 403907190 Plan: 1patient presented the hospital with sepsis in this patient who did have fever elevated white count meeting criteria for SIRS/sepsis also likely urinary in this patient has significant urinary symptoms positive UA likely symptomatic UTI likely from attending gram-negative pathogen. Some abnormality reported on chest x-ray however did not have significant respiratory symptoms to be suspicious for pneumonia 2patient did have a improvement in the fever pattern repeat urine is slightly positive culture is currently pending ultrasound was negative for any structure abnormality 3for now we will continue patient on Rocephin while waiting for the culture to finalize question concern answered Dictation was produced using [employer] dictation software. please excuse any grammatical, word or spelling errors. Time with Patient: Less than 30
--- NOTE | 2025-03-28 15:47 | P.PN ---
Subjective Progress Note Date: 03/28/25 HISTORY OF PRESENT ILLNESS: This is an 84-year-old male with previous medical history significant for hypertension and hypertensive cardiovascular disease, hyperlipidemia, hypothyroidism, obesity with obstructive sleep apnea, glaucoma, chronic reflux esophagitis, history of vitamin D deficiency, patient presented to the emergency department yesterday with increased fever and chills associated with increased urinary frequency and dysuria, he was found to have a leukocytosis with a white count of 17,000, his urinalysis showed evidence of urinary tract infection, patient was feeling okay at that time he was given IV fluid resuscitation, he was placed on oral antibiotic, he came back later on today in the morning with increased fever and chills associated with increased urinary frequency and dysuria, because of the presentation his was admitted to the hospital for urinary tract infection with sepsis, blood culture and urine culture were obtained, started the patient on ceftriaxone 2 g repeated back every 24 hours, infectious ease consultation was obtained, patient was placed on IV fluid resuscitation in the form of normal saline at 100 cc an hour, patient will be admitted to the hospital for further evaluation and recommendation. Patient did have a twelve-lead EKG did not show evidence of acute abnormalities, he did have a chest x-ray that did show some prominence of the right more than the left suggestive of inflammatory condition, we will follow-up with the patient very c giacomoly, I will obtain a CT scan of the abdomen pelvis with contrast for further evaluation recommendation. 03/26: Patient sitting up in a chair in no apparent distress, he denies any chest pain, shortness of abdominal pain, nausea vomiting or diarrhea he has no fever or chills at this time, urine culture still pending, continue ceftriaxone 2 g piggyback every 24 hours, hopefully will get his culture tomorrow morning, patient appears to be somewhat fluid overloaded, he appears to have 3 L nasal c annula, oxygen saturation 92%, I will discontinue IV fluid, start the patient on Lasix 40 mg p.o. x 1, patient will be given 1 dose of potassium supplement 20 mill: X 1, follow-up with the patient very closely, repeat chest x-ray. 03/27: Patient is sitting up in bed in no apparent distress, he had fever today again 1-1.3 he denies any chest pain at this time, he has no shortness of breath, he does complain of some headache, he has no abdominal pain, he did have a large bowel movement today, he did have a chest x-ray yesterday that did not show evidence of acute abnormalities, he did diurese very well with the Lasix, he has not had any major issues beside that, his urine culture did not show any evidence of acute abnormalities, we will keep the patient in the hospital for another 24 hours, continue current IV antibiotic in the form of ceftriaxone, incentive spirometer, continue CPAP, hopefully will discharge the patient home tomorrow morning, if the patient defervesced. 03/28: Patient is feeling a lot better today, he has not had any fever since midnight, he has been getting ceftriaxone 2 g piggyback every 24 hours, he was seen in consultation by infectious ease, patient is feeling a lot better today, he is moving around okay, he has no chest pain or shortness of breath, he has no burning sensation at this time, he wanted to be discharged home at this point in time, follow-up with me as an outpatient next week, I will discharge the patient, continue patient on Ceftin 500 mg orally twice every day for the next 7 days. REVIEW OF SYSTEMS: Constitutional: Positive for documented fever, no chills, no night sweats. No weight change. No weakness, fatigue or lethargy. No daytime sleepiness. EENT: No headache. No blurred vision or double vision, no loss of vision. No loss of Hearing, no ringing in the ears, no dizziness. No nasal drainage or congestion. No epistaxis. No sore throat. Lungs: poitive for shortness of breath, no cough, no sputum production. No wheezing. Reports dyspnea with activity. Cardiovascular: No chest pain, no lower extremity edema. No palpitations. No paroxysmal nocturnal dyspnea. No orthopnea. No lightheadedness or dizziness. No syncopal episodes. Abdominal: Reports abdominal pain. No nausea, vomiting. No diarrhea. No constipation. No bloody or tarry stools reports loss of appetite. Genitourinary: Positive for dysuria, increased frequency, for urgency. No urinary retention. Musculoskeletal: No myalgias. No muscle weakness, no gait dysfunction, no frequent falls. No back pain. No neck pain. Integumentary: No wounds, no lesions. No rash or pruritus. No unusual bruising. No change in hair or nails. Neurologic: No aphasia. No facial droop. No change in mentation. No head injury. No headache. No paralysis. No paresthesia. Psychiatric: No depression. No anxiety. No mood swings. Endocrine: No abnormal blood sugars. No weight change. PHYSICAL EXAMINATION: General: 84-year-old male lying down in bed in no distress. HEENT: Head is atraumatic, normocephalic, pupils were equal round reactive to light and recommendation, extraocular muscle movement were intact, sclera nonicteric, conjunctivae were pale, mucous membranes of the mouth are somewhat dry. Neck: Supple, no JVP, normal carotid upstroke bilaterally, no lymphadenopathy. Chest: Decreased breath sounds at the bases, few rhonchi, no expiratory wheezes, no chest wall tenderness, no intercostal retractions. Heart: First heart sound is normal, second heart sounds normal there is systolic ejection murmur 2/6 located left sternal border. Abdomen: Soft, nontender, nondistended, positive bowel sounds. Extremities: There is +1 edema no calf tenderness DP +2 bilaterally. Neurologic examination: Patient is awake alert and oriented x3, cranial nerves II-12 appear grossly intact, muscle power were 5 out of 5 in upper extremities and 5 out of 5 in bilateral lower extremities, deep tendon reflexes normal bilaterally. ASSESSMENT AND PLAN: 1. Urinary tract infection with sepsis. Continue patient on Ceftin 500 mg orally twice a day for 7 days. Discontinue ceftriaxone. 2. Hypertension and hypertensive cardiovascular disease continue patient on losartan 50 mg as of today monitor the patient blood pressure very closely. 3 mixed hyperlipidemia. Continue patient on simvastatin 40 mg at bedtime,. Monitor lipid panel, keep LDL 55-70. 4 hypothyroidism. Continue levothyroxine 50 mcg orally once every day, monitor thyroid function test.. 5. History of glaucoma. Continue patient on latanoprost 1 drop in the left eye at bedtime along with timolol twice every day. 6.GERD with esophagitis. Continue Protonix 40 mg orally once every day. 7. Allergic rhinitis. Continue montelukast 10 mg at bedtime, along with Claritin 10 mg orally once every day. 8. Enlarged prostate. Continue doxazosin 2 mg orally once every day. 9. Vitamin D deficiency. Continue vitamin D3 2000 units once every day. 10. Obesity with obstructive sleep apnea. Continue with CPAP. 11. Nonrheumatic mitral regurgitation echocardiogram is up-to-date. Continue losartan 50 mg once every day. 12. DVT prophylaxis. Continue patient on Lovenox 40 mg subcutaneously every 24 hours. 13. GI prophylaxis. Continue patient on Protonix 40 mg once every day. 14. fluid overload resolved. 15. patient is medically stable for discharge home Objective - Vital Signs Vital signs: Vital Signs Temp 98.1 F 03/28/25 12:01 Pulse 67 03/28/25 12:01 Resp 16 03/28/25 12:01 BP 147/54 03/28/25 12:01 Pulse Ox 100 03/28/25 12:01 FiO2 Intake & Output 03/27/25 03/28/25 03/28/25 18:59 06:59 18:59 Intake Total 1160 600 720 Balance 1160 600 720 Intake: Oral 1160 720 Other 600 Other: Voiding Method Toilet Toilet Toilet Urinal # Voids 3 2 # Bowel Movements 1 - Labs CBC & Chem 7: 03/27/25 05:47 03/27/25 05:47 Labs: Abnormal Lab Results - Last 24 Hours (Table) 03/27/25 Range/Units 15:50 Urine Protein 1+ H (Negative) Urine Blood Moderate H (Negative) Ur Leukocyte Esterase Large H (Negative) Urine WBC 128 H (0-5) /hpf Urine WBC Clumps Few H (None) /hpf Urine Bacteria Rare H (None) /hpf Microbiology - Last 24 Hours (Table) 03/25/25 05:49 Blood Culture - Preliminary Blood
--- NOTE | 2025-03-28 15:49 | P.DS ---
Providers Date of admission: 03/25/25 06:19 Expected date of discharge: 03/28/25 Attending physician: Jaspal Cota Consults: 03/25/25 08:02 Consult Physician Routine Consulting Provider: Chente Martinez Consult Reason/Comments: uti Do you want consulting provider notified?: Yes Primary care physician: Jaspal Cota Hospital Course: HISTORY OF PRESENT ILLNESS: This is an 84-year-old male with previous medical history significant for hypertension and hypertensive cardiovascular disease, hyperlipidemia, hypothyroidism, obesity with obstructive sleep apnea, glaucoma, chronic reflux esophagitis, history of vitamin D deficiency, patient presented to the emergency department yesterday with increased fever and chills associated with increased urinary frequency and dysuria, he was found to have a leukocytosis with a white count of 17,000, his urinalysis showed evidence of urinary tract infection, patient was feeling okay at that time he was given IV fluid resuscitation, he was placed on oral antibiotic, he came back later on today in the morning with increased fever and chills associated with increased urinary frequency and dysuria, because of the presentation his was admitted to the hospital for urinary tract infection with sepsis, blood culture and urine culture were obtained, started the patient on ceftriaxone 2 g repeated back every 24 hours, infectious ease consultation was obtained, patient was placed on IV fluid resuscitation in the form of normal saline at 100 cc an hour, patient will be admitted to the hospital for further evaluation and recommendation. Patient did have a twelve-lead EKG did not show evidence of acute abnormalities, he did have a chest x-ray that did show some prominence of the right more than the left suggestive of inflammatory condition, we will follow-up with the patient very closely, I will obtain a CT scan of the abdomen pelvis with contrast for further evaluation recommendation. 03/26: Patient sitting up in a chair in no apparent distress, he denies any chest pain, shortness of abdominal pain, nausea vomiting or diarrhea he has no fever or chills at this time, urine culture still pending, continue ceftriaxone 2 g piggyback every 24 hours, hopefully will get his culture tomorrow morning, patient appears to be somewhat fluid overloaded, he appears to have 3 L nasal cannula, oxygen saturation 92%, I will discontinue IV fluid, start the patient on Lasix 40 mg p.o. x 1, patient will be given 1 dose of potassium supplement 20 mill: X 1, follow-up with the patient very closely, repeat chest x-ray. 03/27: Patient is sitting up in bed in no apparent distress, he had fever today again 1-1.3 he denies any chest pain at this time, he has no shortness of breath, he does complain of some headache, he has no abdominal pain, he did have a large bowel movement today, he did have a chest x-ray yesterday that did not show evidence of acute abnormalities, he did diurese very well with the Lasix, he has not had any major issues beside that, his urine culture did not show any evidence of acute abnormalities, we will keep the patient in the hospital for another 24 hours, continue current IV antibiotic in the form of ceftriaxone, incentive spirometer, continue CPAP, hopefully will discharge the patient home tomorrow morning, if the patient defervesced. 03/28: Patient is feeling a lot better today, he has not had any fever since midnight, he has been getting ceftriaxone 2 g piggyback every 24 hours, he was seen in consultation by infectious ease, patient is feeling a lot better today, he is moving around okay, he has no chest pain or shortness of breath, he has no burning sensation at this time, he wanted to be discharged home at this point in time, follow-up with me as an outpatient next week, I will discharge the patient, continue patient on Ceftin 500 mg orally twice every day for the next 7 days. Discharge diagnoses: 1. Urinary tract infection with sepsis. 2. Hypertension and hypertensive cardiovascular disease 3 mixed hyperlipidemia. 4 hypothyroidism. 5. History of glaucoma. 6.GERD with esophagitis. 7. Allergic rhinitis. 8. Enlarged prostate. 9. Vitamin D deficiency. 10. Obesity with obstructive sleep apnea. 11. Nonrheumatic mitral regurgitation echocardiogram is up-to-date. 12. fluid overload resolved. Patient Condition at Discharge: Stable Plan - Discharge Summary New Discharge Prescriptions: No Action Levothyroxine Sodium [Synthroid] 50 mcg PO DAILY Latanoprost Ophth [Xalatan 0.005%] 1 drop LEFT EYE DAILY Simvastatin [Zocor] 40 mg PO HS Doxazosin [Cardura] 2 mg PO DAILY Montelukast [Singulair] 10 mg PO DAILY Timolol 0.5% Ophth Soln [Timoptic 0.5% Ophth Soln] 1 drop LEFT EYE DAILY Losartan [Cozaar] 50 mg PO DAILY Discharge Medication List Doxazosin [Cardura] 2 mg PO DAILY 12/29/15 [History] Latanoprost Ophth [Xalatan 0.005%] 1 drop LEFT EYE DAILY 12/29/15 [History] Levothyroxine Sodium [Synthroid] 50 mcg PO DAILY 12/29/15 [History] Simvastatin [Zocor] 40 mg PO HS 12/29/15 [History] Losartan [Cozaar] 50 mg PO DAILY 03/25/25 [History] Montelukast [Singulair] 10 mg PO DAILY 03/25/25 [History] Timolol 0.5% Ophth Soln [Timoptic 0.5% Ophth Soln] 1 drop LEFT EYE DAILY 03/25/25 [History] Follow up Appointment(s)/Referral(s): Jaspal Cota MD [Primary Care Provider] - 1 Week Chente Martinez MD [STAFF PHYSICIAN] - 1 Week Discharge Disposition: HOME SELF-CARE
== END 2025-03-28 16:42 | disposition home or self-care (01) | DRG 872 ==
LOC: EC 05:27 → 5NMEDONC 06:19
PROVIDERS: ADMIT Internal Medicine; ATTEND Internal Medicine
DX: A41.9 Sepsis, unspecified organism (principal); E03.9 Hypothyroidism, unspecified; E66.9 Obesity, unspecified; I11.9 Hypertensive heart disease without heart failure; I34.0 Nonrheumatic mitral (valve) insufficiency; N39.0 Urinary tract infection, site not specified; Z68.31 Body mass index [BMI] 31.0-31.9, adult; J30.9 Allergic rhinitis, unspecified; G47.33 Obstructive sleep apnea (adult) (pediatric); E78.2 Mixed hyperlipidemia; K21.00 Gastro-esophageal reflux disease with esophagitis, without bleeding; N40.0 Benign prostatic hyperplasia without lower urinary tract symptoms; H40.9 Unspecified glaucoma; Z79.890 Hormone replacement therapy; Z79.899 Other long term (current) drug therapy; Z85.828 Personal history of other malignant neoplasm of skin; E87.70 Fluid overload, unspecified
CPT/HCPCS: 36415; 71045; 71046; 76770; 80053; 81001; 83605; 83690; 83735; 83880; 84100; 84484; 85025; 85610; 85730; 87040; 87086; 87636; 93005; 94760; 96361; 96365; 99285

== ENCOUNTER 2025-04-10 16:29 | Emergency (ER) | payer MEDICARE ==
[2025-04-10 16:41] VITALS: TEMP 97.4
--- NOTE | 2025-04-10 17:06 | ED ---
General Adult HPI - General Chief complaint: Weakness Stated complaint: Fatigue Time Seen by Provider: 04/10/25 16:45 Source: patient, RN notes reviewed Mode of arrival: ambulatory Limitations: no limitations - History of Present Illness Initial comments: This is an 84-year-old male with a past medical history of HLD, HNT, hypothyroidism presenting to emergency department his for complaints of generalized weakness and fatigue. Patient is concerned that he may have another urinary tract infection. However, patient denies dysuria, hematuria, increased urinary frequency or urgency, or malodorous urine. He denies abdominal pain, chest pain, bowel habit changes, headaches, weakness. States that he just feels tired. at bedside states that patient has been sleeping more than normal. Patient was hospitalized at the beginning of March he was hospitalized for a severe urinary tract infection with sepsis. Completed antibiotics for UTI a few days ago. - Related Data Home Medications Medication Instructions Recorded Confirmed Doxazosin [Cardura] 2 mg PO DAILY 12/29/15 03/25/25 Latanoprost Ophth [Xalatan 0.005%] 1 drop LEFT EYE DAILY 12/29/15 03/25/25 Levothyroxine Sodium [Synthroid] 50 mcg PO DAILY 12/29/15 03/25/25 Simvastatin [Zocor] 40 mg PO HS 12/29/15 03/25/25 Losartan [Cozaar] 50 mg PO DAILY 03/25/25 03/25/25 Montelukast [Singulair] 10 mg PO DAILY 03/25/25 03/25/25 Timolol 0.5% Ophth Soln [Timoptic 1 drop LEFT EYE DAILY 03/25/25 03/25/25 0.5% Ophth Soln] Previous Rx's Medication Instructions Recorded cefuroxime axetiL [Ceftin] 500 mg PO BID 7 Days #14 tab 03/28/25 Allergies Allergy/AdvReac Type Severity Reaction Status Date / Time tree and shrub pollen Allergy Unknown Verified 04/10/25 16:40 Review of Systems ROS Statement: Those systems with pertinent positive or pertinent negative responses have been documented in the HPI. ROS Other: All systems not noted in ROS Statement are negative. Past Medical History Past Medical History: Hyperlipidemia, Hypertension, Osteoarthritis (OA), Sleep Apnea/CPAP/BIPAP, Thyroid Disorder Additional Past Medical History / Comment(s): SOME TROUBLE SWALLOWING, Ventricular arrhythmia, UTI, History of Any Multi-Drug Resistant Organisms: None Reported Additional Past Surgical History / Comment(s): left eye retinal repair, loc cataracts removed, colonoscopy Past Anesthesia/Blood Transfusion Reactions: No Reported Reaction Past Psychological History: No Psychological Hx Reported Smoking Status: Never smoker Past Alcohol Use History: Occasional, Rare Past Drug Use History: None Reported - Past Family History Sister(s) Family Medical History: Cancer General Exam Limitations: no limitations General appearance: alert, in no apparent distress ENT exam: Present: normal exam, mucous membranes moist Neck exam: Present: normal inspection. Absent: tenderness, meningismus, lymphadenopathy Respiratory exam: Present: normal lung sounds bilaterally. Absent: respiratory distress, wheezes, rales, rhonchi, stridor Cardiovascular Exam: Present: regular rate, normal rhythm, normal heart sounds. Absent: systolic murmur, diastolic murmur, rubs, gallop, clicks GI/Abdominal exam: Present: soft, normal bowel sounds. Absent: distended, tenderness, guarding, rebound, rigid Extremities exam: Present: normal inspection, full ROM, normal capillary refill. Absent: tenderness, pedal edema, joint swelling, calf tenderness Back exam: Present: normal inspection Neurological exam: Present: alert, oriented X3, CN II-XII intact Course Vital Signs 04/10/25 04/10/25 16:36 18:37 Temperature 97.4 F L Pulse Rate 90 92 Respiratory 18 16 Rate Blood Pressure 131/82 125/65 O2 Sat by Pulse 98 98 Oximetry Medical Decision Making - Medical Decision Making Was pt. sent in by a medical professional or institution (, PA, [facility]INGER, urgent care, hospital, or [place] health care facility...) When possible be specific @ -No Did you speak to anyone other than the patient for history (EMS, parent, family, police, friend...)? What history was obtained from this source @ -No Did you review nursing and triage notes (agree or disagree)? Why? @ -I reviewed and agree with nursing and triage notes Were old charts reviewed (outside hosp., previous admission, EMS record, old EKG, old radiological studies, urgent care reports/EKG's, [place] health care facility records)? Report findings @ -No old charts were reviewed Differential Diagnosis (chest pain, altered mental status, abdominal pain women, abdominal pain men, vaginal bleeding, weakness, fever, dyspnea, syncope, headache, dizziness, GI bleed, back pain, seizure, CVA, palpatations, mental health, musculoskeletal)? @ -Differential Weakness: Hypoglycemia, shock, sepsis, hyponatremia, anemia, infection, [place], ETOH, adverse medicine reaction, overdose, stroke, this is not meant to be an all-inclusive list. EKG interpreted by me (3pts min.). @ -Completed at 1758 ventricular rate 89, WA interval 190, QRS 102, QT 357, QTc 403. X-rays interpreted by me (1pt min.). @ -None done CT interpreted by me (1pt min.). @ -None done U/S interpreted by me (1pt. min.). @ -None done What testing was considered but not performed or refused? (CT, X-rays, U/S, labs)? Why? @ -None What meds were considered but not given or refused? Why? @ -None Did you discuss the management of the patient with other professionals (professionals i.e. , PA, [facility]INGER, lab, RT, psych nurse, psychotherapist social worker, calibration tester, teacher, alumni relations officer, disability case manager)? Give summary @ -No Was smoking cessation discussed for >3mins.? @ -No Was critical care preformed (if so, how long)? @ -No Were there social determinants of health that impacted care today? How? (Homelessness, low income, unemployed, alcoholism, drug addiction, transp ortation, low edu. Level, literacy, decrease access to med. care, [facility], rehab)? @ -No Was there de-escalation of care discussed even if they declined (Discuss DNR or withdrawal of care, Hospice)? DNR status @ -No What co-morbidities impacted this encounter? (DM, HTN, Smoking, COPD, CAD, Cancer, CVA, ARF, Chemo, Hep., AIDS, mental health diagnosis, sleep apnea, morbid obesity)? @ -None Was patient admitted / discharged? Hospital course, mention meds given and route, prescriptions, significant lab abnormalities, going to OR and other pertinent info. @ -Discharge. 84-year-old male presenting for complaints of generalized fatigue and weakness. Overall patient is well-appearing on initial examination and his vitals are stable. He is resting comfortably examination bed. Neurological examination is unremarkable. EKG is in sinus rhythm. Patient workup has been unremarkable including CBC, CMP, troponin. Urinalysis reveals no signs of infection. Discussion with patient at bedside that testing has resulted unremarkable and believe that he is stable to follow-up outpatient with primary care provider. Patient did agree with this plan. Patient feels stable for discharge. Case discussed with my attending Dr. Ruiz Undiagnosed new problem with uncertain prognosis? @ -No Drug Therapy requiring intensive monitoring for toxicity (Heparin, Nitro, Insulin, Cardizem)? @ -No Were any procedures done? @ -No Diagnosis/symptom? @ -generalized weakness, fatigue Acute, or Chronic, or Acute on Chronic? @ -acute Uncomplicated (without systemic symptoms) or Complicated (systemic symptoms)? @ -uncomplicated Side effects of treatment? @ -No Exacerbation, Progression, or Severe Exacerbation? @ -No Poses a threat to life or bodily function? How? (Chest pain, [place], [place], pneumonia, PE, COPD, DKA, ARF, appy, cholecystitis, CVA, Diverticulitis, Homicidal, Suicidal, threat to staff... and all critical care pts) @ -No - Lab Data Result diagrams: 04/10/25 17:52 04/10/25 17:52 Lab Results 04/10/25 04/10/25 04/10/25 Range/Units 17:28 17:52 17:52 WBC 8.40 (4.50-10.00) 10*3/uL RBC 4.51 (4.40-5.60) 10*6/uL Hgb 14.3 (13.0-17.0) g/dL Hct 42.8 (39.6-50.0) % MCV 94.9 (80.0-97.0) fL MCH 31.7 (27.0-32.0) pg MCHC 33.4 (32.0-37.0) g/dL Plt Count 301 (140-440) 10*3/uL MPV 11.7 (9.5-12.2) fL Immature Gran % (Auto) 0.4 % Neutrophils % 65.4 % Lymphocytes % 23.8 % Monocytes % 8.2 % Eosinophils % 1.8 % Basophils % 0.4 % Immature Gran # 0.03 (0.00-0.04) 10*3/uL Neutrophils # 5.50 (1.80-7.70) 10*3/uL Lymphocytes # 2.00 (0.90-5.00) 10*3/uL Monocytes # 0.69 (0.20-1.00) 10*3/uL Eosinophils # 0.15 (0.04-0.35) 10*3/uL Basophils # 0.03 (0.00-0.10) 10*3/uL PT 10.9 (10.0-12.5) sec INR 1.0 (<1.2) APTT 23.9 (22.0-30.0) sec Sodium (137-145) mmol/L Potassium (3.5-5.1) mmol/L Chloride (98-107) mmol/L Carbon Dioxide (22-30) mmol/L Anion Gap mmol/L BUN (9-20) mg/dL Creatinine (0.66-1.25) mg/dL Est GFR (CKD-EPI)AfAm (>60 ml/min/1.73 sqM) Est GFR (CKD-EPI)NonAf (>60 ml/min/1.73 sqM) Glucose (74-99) mg/dL Plasma Lactic Acid Noel (0.7-2.0) mmol/L Calcium (8.4-10.2) mg/dL Magnesium (1.6-2.3) mg/dL Total Bilirubin (0.2-1.3) mg/dL AST (17-59) U/L ALT (4-49) U/L Alkaline Phosphatase (38-126) U/L Troponin I (0.000-0.034) ng/mL Total Protein (6.3-8.2) g/dL Albumin (3.5-5.0) g/dL Urine Color Light Yellow Urine Appearance Clear (Clear) Urine pH 6.0 (5.0-8.0) Ur Specific [place] 1.015 (1.001-1.035) Urine Protein Negative (Negative) Urine Glucose (UA) Negative (Negative) Urine Ketones Negative (Negative) Urine Blood Negative (Negative) Urine Nitrite Negative (Negative) Urine Bilirubin Negative (Negative) Urine Urobilinogen <2.0 (<2.0) mg/dL Ur Leukocyte Esterase Small H (Negative) Urine RBC <1 (0-5) /hpf Urine WBC 4 (0-5) /hpf 04/10/25 04/10/2504/10/25 Range/Units 17:52 17:52 17:52 WBC (4.50-10.00) 10*3/uL RBC (4.40-5.60) 10*6/uL Hgb (13.0-17.0) g/dL Hct (39.6-50.0) % MCV (80.0-97.0) fL MCH (27.0-32.0) pg MCHC (32.0-37.0) g/dL Plt Count (140-440) 10*3/uL MPV (9.5-12.2) fL Immature Gran % (Auto) % Neutrophils % % Lymphocytes % % Monocytes % % Eosinophils % % Basophils % % Immature Gran # (0.00-0.04) 10*3/uL Neutrophils # (1.80-7.70) 10*3/uL Lymphocytes # (0.90-5.00) 10*3/uL Monocytes # (0.20-1.00) 10*3/uL Eosinophils # (0.04-0.35) 10*3/uL Basophils # (0.00-0.10) 10*3/uL PT (10.0-12.5) sec INR (<1.2) APTT (22.0-30.0) sec Sodium 142 (137-145) mmol/L Potassium 4.5 (3.5-5.1) mmol/L Chloride 102 (98-107) mmol/L Carbon Dioxide 31 H (22-30) mmol/L Anion Gap 9 mmol/L BUN 25 H (9-20) mg/dL Creatinine 0.82 (0.66-1.25) mg/dL Est GFR (CKD-EPI)AfAm >90 (>60 ml/min/1.73 sqM) Est GFR (CKD-EPI)NonAf 82 (>60 ml/min/1.73 sqM) Glucose 93 (74-99) mg/dL Plasma Lactic Acid Noel 1.0 (0.7-2.0) mmol/L Calcium 10.1 (8.4-10.2) mg/dL Magnesium 2.0 (1.6-2.3) mg/dL Total Bilirubin 0.5 (0.2-1.3) mg/dL AST 28 (17-59) U/L ALT 31 (4-49) U/L Alkaline Phosphatase 97 (38-126) U/L Troponin I <0.012 (0.000-0.034) ng/mL Total Protein 8.0 (6.3-8.2) g/dL Albumin 4.6 (3.5-5.0) g/dL Urine Color Urine Appearance (Clear) Urine pH (5.0-8.0) Ur Specific [place] (1.001-1.035) Urine Protein (Negative) Urine Glucose (UA) (Negative) Urine Ketones (Negative) Urine Blood (Negative) Urine Nitrite (Negative) Urine Bilirubin (Negative) Urine Urobilinogen (<2.0) mg/dL Ur Leukocyte Esterase (Negative) Urine RBC (0-5) /hpf Urine WBC (0-5) /hpf Disposition Clinical Impression: Generalized weakness Disposition: HOME SELF-CARE Condition: Good Instructions (If sedation given, give patient instructions): Weakness (ED), Fatigue (ED) Additional Instructions: Please return to the Emergency Department if symptoms worsen or any other concerns. Please follow-up with your primary care doctor on Sunday for further evaluation. Is patient prescribed a controlled substance at d/c from ED?: No Referrals: Jaspal Cota MD [Primary Care Provider] - 1-2 days Time of Disposition: 18:45
[2025-04-10 17:45] LABS: Bilirubin,Urine Negative (Negative); Blood,Urine Negative (Negative); Color,Urine Light Yellow; Glucose,Urine (UA) Negative (Negative); Ketones,Urine Negative (Negative); Leukocyte Esterase,Urine Small (Negative); Nitrite,Urine Negative (Negative); PH, Urine 6.0 (5.0-8.0); Protein,Urine Negative (Negative); RBC,Urine <1 /hpf (0-5); Specific Gravity,Urine 1.015 (1.001-1.035); Urobilinogen,Urine <2.0 mg/dL (<2.0); WBC,Urine 4 /hpf (0-5)
[2025-04-10 18:13] LABS: Basophils # (A) 0.03 10*3/uL (0.00-0.10); Basophils % (A) 0.4 %; Eosinophils # (A) 0.15 10*3/uL (0.04-0.35); Eosinophils % (A) 1.8 %; HCT 42.8 % (39.6-50.0); HGB 14.3 g/dL (13.0-17.0); Lymphocytes # (A) 2.00 10*3/uL (0.90-5.00); Lymphocytes % (A) 23.8 %; MCH 31.7 pg (27.0-32.0); MCHC 33.4 g/dL (32.0-37.0); MCV 94.9 fL (80.0-97.0); Monocytes # (A) 0.69 10*3/uL (0.20-1.00); Monocytes % (A) 8.2 %; Neutrophils # (A) 5.50 10*3/uL (1.80-7.70); Neutrophils % (A) 65.4 %; Platelet Count 301 10*3/uL (140-440); RBC 4.51 10*6/uL (4.40-5.60); RDW 13.0 % (11.5-14.5); WBC 8.40 10*3/uL (4.50-10.00)
[2025-04-10 18:28] LABS: ALT 31 U/L (4-49); AST 28 U/L (17-59); African American GFR (CKD) >90 (>60 ml/min/1.73 sqM); Albumin 4.6 g/dL (3.5-5.0); Alkaline Phosphatase 97 U/L (38-126); Anion Gap 9 mmol/L; Blood Urea Nitrogen 25 mg/dL (9-20); Calcium 10.1 mg/dL (8.4-10.2); Carbon Dioxide 31 mmol/L (22-30); Chloride 102 mmol/L (98-107); Glucose 93 mg/dL (74-99); Magnesium 2.0 mg/dL (1.6-2.3); Non-African American GFR(CKD) 82 (>60 ml/min/1.73 sqM); Potassium 4.5 mmol/L (3.5-5.1); Sodium 142 mmol/L (137-145); Total Protein 8.0 g/dL (6.3-8.2)
[2025-04-10 18:32] LABS: INR 1.0 (<1.2); Partial Thromboplastin Time 23.9 sec (22.0-30.0); Prothrombin Time 10.9 sec (10.0-12.5)
[2025-04-10 18:37] VITALS: BP 125/65; RESP 16
[2025-04-10 19:17] VITALS: PULSE 87
== END 2025-04-10 19:37 | disposition home or self-care (01) ==
LOC: EC 16:29
DX: R53.1 Weakness (principal); E78.5 Hyperlipidemia, unspecified; I10 Essential (primary) hypertension; E03.9 Hypothyroidism, unspecified; Z88.8 Allergy status to other drugs, medicaments and biological substances
CPT/HCPCS: 36415; 80053; 81001; 83605; 83735; 84484; 85025; 85610; 85730; 93005; 99285